=== PATIENT | female | born 1940 | race Caucasian/White ===

== ENCOUNTER 2016-11-26 15:20 | Outpatient (CLI) | payer MEDICARE, OTHER ==
--- NOTE | 2016-11-27 10:11 | XRAY Report ---
RIGHT HIP AND PELVIS: 11/26/2016 CLINICAL INDICATION: Pain. FINDINGS: Frontal view of the hips and pelvis and frogleg lateral view of the right hip demonstrate moderate bilateral hip osteoarthritis. There is no evidence of acute fracture or dislocation. The v isualized bowel gas pattern is normal. IMPRESSION: MODERATE OSTEOARTHRITIS. JOB #: [id number] EXT JOB #:[id number]
== END 2016-11-26 15:21 | disposition home or self-care (01) ==
LOC: DI 15:20
PROVIDERS: ATTEND Internal Medicine
DX: M16.11 Unilateral primary osteoarthritis, right hip (principal)

== ENCOUNTER 2017-04-20 14:56 | Outpatient (CLI) | payer MEDICARE, OTHER ==
[2017-04-20 13:03] LABS: BASOPHILS % (AUTO) 0.4 %; EOSINOPHILS # (AUTO) 0.1 10^3/uL (0.0-0.7); EOSINOPHILS % (AUTO) 1.1 %; HCT - HEMATOCRIT 39.1 % (37.0-47.0); HGB - HEMOGLOBIN 12.6 g/dL (12.0-16.0); LYMPHOCYTES # (AUTO) 1.8 10^3/uL (1.5-3.5); LYMPHOCYTES % (AUTO) 30.9 %; MEAN CORPUSCULAR HEMOGLOBIN 23.5 pg (27.0-31.0); MEAN CORPUSCULAR HGB CONC 32.2 g/dL (32.0-36.0); MEAN PLATELET VOLUME 9.4 fL (7.9-10.8); MONOCYTES # (AUTO) 0.6 10^3/uL (0.0-1.0); NEUTROPHILS # (AUTO) 3.4 10^3/uL (1.5-6.6); NEUTROPHILS % (AUTO) 57.6 %; RED BLOOD COUNT 5.35 10^6/uL (4.20-5.40); RED CELL DISTRIBUTION WIDTH 14.1 % (12.0-15.0); UNCORRECTED WHITE BLOOD COUNT 5.9 x10^3/uL; WHITE BLOOD COUNT 5.9 x10^3/uL (4.8-10.8)
[2017-04-20 13:38] LABS: ALBUMIN/GLOBULIN RATIO 1.3 (1.0-2.2); BILIRUBIN,TOTAL 0.7 mg/dL (0.2-1.0); BUN - BLOOD UREA NITROGEN 16 mg/dL (6-20); CALCIUM 9.1 mg/dL (8.5-10.3); CARBON DIOXIDE - CO2 28 mmol/L (21-32); CHLORIDE 98 mmol/L (101-111); CHOL/HDL RATIO 2.6 (<4.4); CHOLESTEROL 143 mg/dL; CREATININE 0.7 mg/dL (0.4-1.0); GFR - MDRD 81 (>89); GLUCOSE 88 mg/dL (70-100); HDL CHOLESTEROL 56 mg/dL; LDL/HDL RATIO 1.3 (<4.4); POTASSIUM 3.9 mmol/L (3.5-5.0); SODIUM 132 mmol/L (135-145); TOTAL PROTEIN 7.2 g/dL (6.7-8.2); TRIGLYCERIDES 69 mg/dL; VLDL CHOLESTEROL 14 mg/dL
== END 2017-04-20 14:57 | disposition home or self-care (01) ==
LOC: LAB.N 14:56
PROVIDERS: ATTEND Internal Medicine
DX: K51.90 Ulcerative colitis, unspecified, without complications (principal); E78.5 Hyperlipidemia, unspecified; I10 Essential (primary) hypertension; Z79.899 Other long term (current) drug therapy
CPT/HCPCS: 36415; 80053; 80061; 85025

== ENCOUNTER 2017-05-10 08:11 | Outpatient (CLI) | payer MEDICARE, OTHER ==
--- NOTE | 2017-05-11 19:14 | Mammography Report ---
DIGITAL SCREENING MAMMOGRAM: 05/10/2017 CLINICAL INDICATION: A 77-year-old nulliparous patient for screening. COMPARISON: 04/2016, 04/2015, 04/2014, 03/2013, 03/2012, 03/2011, 03/2010. TECHNIQUE: Routine CC and MLO projections were obtained of the breasts. The breasts demonstrate scattered fibroglandular densities bilaterally. Punctate, typically benign c alcifications are present. No suspicious masses, clustered microcalcifications, or regions of richy ectural distortion are identified. IMPRESSION: BENIGN FINDINGS. RECOMMENDATION: ROUTINE ANNUAL SCREENING UNLESS OTHERWISE CLINICALLY INDICATED. BIRADS CATEGORY: 2, BENIGN FINDINGS. STANDARD QUALIFYING STATEMENTS 1. This examination was reviewed with the aid of Computed-Aided Detection (CAD). 2. A negative or benign imaging report should not delay biopsy if clinically suspicious findings are present. Consider surgical consultation if warranted. More than 5% of cancers are not identified b y imaging. 3. Dense breasts may obscure an underlying neoplasm. :9 JOB #: [id number] EXT JOB #:[id number]
== END 2017-05-10 08:12 | disposition home or self-care (01) ==
LOC: DI 08:11
PROVIDERS: ATTEND Internal Medicine
DX: Z12.31 Encounter for screening mammogram for malignant neoplasm of breast (principal)
CPT/HCPCS: 77067

== ENCOUNTER 2018-04-21 08:04 | Outpatient (CLI) | payer MEDICARE, OTHER ==
[2018-04-21 12:59] LABS: BASOPHILS % (AUTO) 0.4 %; EOSINOPHILS # (AUTO) 0.1 10^3/uL (0.0-0.7); EOSINOPHILS % (AUTO) 1.2 %; LYMPHOCYTES # (AUTO) 1.4 10^3/uL (1.5-3.5); LYMPHOCYTES % (AUTO) 28.6 %; MEAN CORPUSCULAR HEMOGLOBIN 24.6 pg (27.0-31.0); MEAN CORPUSCULAR HGB CONC 33.6 g/dL (32.0-36.0); MEAN CORPUSCULAR VOLUME 73.4 fL (81.0-99.0); MEAN PLATELET VOLUME 9.2 fL (7.9-10.8); MONOCYTES # (AUTO) 0.4 10^3/uL (0.0-1.0); MONOCYTES % (AUTO) 7.7 %; NEUTROPHILS # (AUTO) 3.1 10^3/uL (1.5-6.6); NEUTROPHILS % (AUTO) 62.1 %; PLT - PLATELET COUNT 178 10^3/uL (130-450); RED BLOOD COUNT 5.29 10^6/uL (4.20-5.40); RED CELL DISTRIBUTION WIDTH 14.2 % (12.0-15.0)
[2018-04-21 13:04] LABS: ALBUMIN/GLOBULIN RATIO 1.3 (1.0-2.2); ALKALINE PHOSPHATASE 75 IU/L (42-121); ALT ALANINE AMINOTRANSFERASE 21 IU/L (10-60); AST ASPARTATE AMINOTRANSFERASE 25 IU/L (10-42); BILIRUBIN,TOTAL 0.4 mg/dL (0.2-1.0); BUN - BLOOD UREA NITROGEN 16 mg/dL (6-20); CALCIUM 9.4 mg/dL (8.5-10.3); CARBON DIOXIDE - CO2 29 mmol/L (21-32); CHLORIDE 96 mmol/L (101-111); CHOL/HDL RATIO 2.4 (<4.4); CHOLESTEROL 149 mg/dL; CREATININE 0.7 mg/dL (0.4-1.0); GFR - MDRD 81 (>89); GLUCOSE 96 mg/dL (70-100); HDL CHOLESTEROL 63 mg/dL; LDL CHOLESTEROL,CALCULATED 71 mg/dL; LDL/HDL RATIO 1.1 (<4.4); SODIUM 133 mmol/L (135-145); TOTAL PROTEIN 7.2 g/dL (6.7-8.2); VLDL CHOLESTEROL 15 mg/dL
== END 2018-04-21 08:05 | disposition home or self-care (01) ==
LOC: LAB.N 08:04
PROVIDERS: ATTEND Internal Medicine
DX: K51.90 Ulcerative colitis, unspecified, without complications (principal); E78.5 Hyperlipidemia, unspecified; K21.9 Gastro-esophageal reflux disease without esophagitis; I10 Essential (primary) hypertension
CPT/HCPCS: 36415; 80053; 80061; 83721; 84443; 85025

== ENCOUNTER 2018-05-03 07:48 | Outpatient (CLI) | payer MEDICARE, OTHER | END 2018-05-03 07:49 | disposition home or self-care (01) | LOC: LAB.N 07:48 | PROVIDERS: ATTEND Internal Medicine | DX: R71.8 Other abnormality of red blood cells (principal) | CPT/HCPCS: 36415; 82728 ==

== ENCOUNTER 2018-05-18 09:39 | Outpatient (CLI) | payer MEDICARE, OTHER ==
--- NOTE | 2018-05-19 15:57 | Mammography Report ---
Reason: SCREENING MAMMO Procedure Date: 05/18/2018 Accession Number: [id number] / [id number] Procedure: FLORI - Screening Mammo w/Kingsley CPT Code: FULL RESULT: EXAM: Screening Mammo w/Kingsley DATE: 05/18/2018 10:04 AM CLINICAL HISTORY: 78 year-old nulliparous female for screening. TECHNIQUE: Bilateral CC and MLO views were obtained. COMPARISON: 05/10/2017, 05/08/2016, 05/06/2015, 04/27/2014. FINDINGS: The breasts demonstrate scattered fibroglandular densities bilaterally. No suspicious masses, clustered microcalcifications, or regions of architectural distortion are identified. IMPRESSION: Negative examination RECOMMENDATION: Routine annual screening unless otherwise clinically indicated. BIRADS CATEGORY 1: Negative STANDARD QUALIFYING STATEMENTS: 1. This examination was not reviewed with the aid of Computer-Aided Detection (CAD). 2. A negative or benign imaging report should not delay biopsy if clinically suspicious findings are present. Consider surgical consultation if warranted. More than 5% of cancers are not identified by imaging. 3. Dense breasts may obscure an underlying neoplasm. 4. This examination was reviewed with the aid of 3D breast imaging (tomosynthesis).
== END 2018-05-18 09:40 | disposition home or self-care (01) ==
LOC: DI 09:39
PROVIDERS: ATTEND Internal Medicine
DX: Z12.31 Encounter for screening mammogram for malignant neoplasm of breast (principal)
CPT/HCPCS: 77063; 77067

== ENCOUNTER 2018-10-04 08:53 | Outpatient (CLI) | payer MEDICARE, OTHER ==
[2018-10-04 09:41] LABS: ABSOLUTE RETICS # AUTO 0.043 10^6/uL (0.020-0.110); BASOPHILS # (AUTO) 0.1 10^3/uL (0.0-0.1); BASOPHILS % (AUTO) 0.8 %; EOSINOPHILS % (AUTO) 0.6 %; HGB - HEMOGLOBIN 12.9 g/dL (12.0-16.0); LYMPHOCYTES # (AUTO) 1.1 10^3/uL (1.5-3.5); LYMPHOCYTES % (AUTO) 16.5 %; MEAN CORPUSCULAR HGB CONC 32.8 g/dL (32.0-36.0); MEAN CORPUSCULAR VOLUME 73.3 fL (81.0-99.0); MEAN PLATELET VOLUME 8.9 fL (7.9-10.8); MEAN RETIC VALUE 97.7; MONOCYTES # (AUTO) 0.6 10^3/uL (0.0-1.0); MONOCYTES % (AUTO) 9.3 %; NEUTROPHILS % (AUTO) 72.8 %; PLT - PLATELET COUNT 183 10^3/uL (130-450); RED BLOOD COUNT 5.35 10^6/uL (4.20-5.40); WHITE BLOOD COUNT 6.8 x10^3/uL (4.8-10.8)
[2018-10-04 10:13] LABS: % IRON SATURATION 16 % (20-50); IRON 59 ug/dL (28-170); TOTAL IRON BINDING CAPACITY 364 ug/dL (250-450); TRANSFERRIN 260 mg/dL (192-382)
[2018-10-04 10:24] LABS: FERRITIN 80.1 ng/mL (11.0-306.8)
[2018-10-04 10:28] LABS: FOLATE 11.57 ng/mL (5.90 - >24.8)
== END 2018-10-04 08:54 | disposition home or self-care (01) ==
LOC: LAB 08:53
PROVIDERS: ATTEND Family Medicine
DX: R68.89 Other general symptoms and signs (principal); R71.8 Other abnormality of red blood cells; M19.90 Unspecified osteoarthritis, unspecified site
CPT/HCPCS: 36415; 82607; 82728; 82746; 83540; 84466; 85025; 85044

== ENCOUNTER 2018-11-29 11:46 | Emergency (ER) | payer MEDICARE, OTHER ==
[2018-11-29 11:52] VITALS: BP 143/85
--- NOTE | 2018-11-29 12:01 | ED Physician Documentation ---
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.) Where injury occurred: Home Timing - onset: How many hours ago (1-2 hours ago and it continues to bleed on ROM and the edges open some.) Timing - details: Abrupt onset Worsened by: Moving Associated symptoms: No: Weakness, Numbness Contributing factors: No: Anticoagulated Similar symptoms before: Has not had sx before Review of Systems Neurologic: denies: Focal weakness, Numbness PD PAST MEDICAL HISTORY - Past Medical History Cardiovascular: High cholesterol Endocrine/Autoimmune: None GI: Ulcerative colitis : None HEENT: Chronic hearing loss Psych: None Musculoskeletal: None Derm: None - Past Surgical History 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 HEENT: Cataracts - Present Medications Home Medications: Ambulatory Orders Medication Instructions Recorded Confirmed Acetaminophen/Cod 300/30 [Tylenol 1 mg ORAL DAILY 04/27/14 12/17/14 #3] Aspirin 81 mg ORAL DAILY 04/27/14 12/17/14 Enalapril [Vasotec] 20 mg PO DAILY 04/27/14 12/17/14 Potassium Chloride [K-Dur] 20 meq ORAL DAILY 04/27/14 12/17/14 Verapamil HCl [Verapamil ER] 240 mg ORAL DAILY 04/27/14 12/17/14 hydroCHLOROthiazide 25 mg ORAL DAILY 04/27/14 12/17/14 [Hydrochlorothiazide] Atorvastatin [Lipitor] 40 mg ORAL DAILY 04/30/14 12/17/14 - Allergies Allergies/Adverse Reactions: Allergies Allergy/AdvReac Type Severity Reaction Status Date / Time cyclobenzaprine HCl * Allergy Anxiety Verified 11/29/18 11:52 [From Flexeril] Zelfadine Allergy Nausea Uncoded 11/29/18 12:06 - Social History Smoking Status: Former smoker PD ED PE NORMAL - Vitals Vital signs reviewed: Yes - General General: Alert and oriented X 3, No acute distress, Well developed/nourished - Derm Derm: Normal color, Warm and dry - Extremities Extremities: Other (ledft index finger with laceration at radial/dorsal aspect of the DIP joint, without FB, but does have slight oozing bleeding. Normal sesnation and cap refill to tip. ) Results - Vitals Vitals: Vital Signs - 24 hr 11/29/18 11:49 Temperature 36.5 C Heart Rate 71 Respiratory 14 Rate Blood Pressure 143/85 H O2 Saturation 96 Oxygen O2 Source Room air Procedures - Laceration (location) left index finger Length in cm: 1.5 Wound type: Curved, Into subcut fat, Clean. No: Into muscle Neurovascular status: Sensory intact, Motor intact, Vascular intact Tendon involvement: No: Tendon intact Anesthesia: Lidocaine 1% Wound Preparation: Irrigated copiously NS Skin layer closure: Nylon, Interrupted, Size #-0 - enter number (4), Sutures - enter # (3) Other: Patient tolerated well, No complications, Neurovascular intact, Dressing applied, Tetanus booster given PD MEDICAL DECISION MAKING - ED course Complexity details: considered differential (wound is small but opens with flexion and is still bleeding some. Shared decision for sutures. ), d/w patient Departure - Departure Disposition: Home, Self Care Clinical Impression: Laceration of index finger Qualifiers: Encounter type: initial encounter Damage to nail status: without damage Foreign body presence: without foreign body Laterality: left Qualified Code(s): S61.211A - Laceration without foreign body of left index finger without damage to nail, initial encounter Condition: Stable Record reviewed to determine appropriate education?: Yes Instructions: ED Laceration Hand Follow-Up: Leighton Youssef MD [Primary Care Provider] - Comments: It is okay to wash and shower. Clean off the wound twice a day with soap and water, or peroxide and water. Apply some antibiotic ointment to it to keep it moist. Also to watch for signs of infection such as purulence, redness or increasing pain. Return to your primary care or the ER at the specified time for suture removal. Suture removal 7 8 days. Discharge Date/Time: 11/29/18 12:35
[2018-11-29] MEDS ORDERED: TETANUS/DIPHTHERIA/PERTUSSIS 0.5 ML SYRINGE IM ONE (12:13)
== END 2018-11-29 12:35 | disposition home or self-care (01) ==
LOC: ED 11:46
DX: S61.211A Laceration without foreign body of left index finger without damage to nail, initial encounter (principal); W26.8XXA Contact with other sharp object(s), not elsewhere classified, initial encounter; Y93.89 Activity, other specified; Y92.009 Unspecified place in unspecified non-institutional (private) residence as the place of occurrence of the external cause; Z23 Encounter for immunization; Z79.82 Long term (current) use of aspirin; Z87.891 Personal history of nicotine dependence
CPT/HCPCS: 12001; 90471; 99282

== ENCOUNTER 2019-04-24 08:02 | Outpatient (CLI) | payer MEDICARE, OTHER ==
[2019-04-24 12:00] LABS: BASOPHILS % (AUTO) 0.7 %; EOSINOPHILS # (AUTO) 0.1 10^3/uL (0.0-0.7); EOSINOPHILS % (AUTO) 1.1 %; HGB - HEMOGLOBIN 12.4 g/dL (12.0-16.0); LYMPHOCYTES # (AUTO) 1.1 10^3/uL (1.5-3.5); LYMPHOCYTES % (AUTO) 24.9 %; MEAN CORPUSCULAR HEMOGLOBIN 24.3 pg (27.0-31.0); MEAN CORPUSCULAR HGB CONC 31.6 g/dL (32.0-36.0); MEAN CORPUSCULAR VOLUME 76.9 fL (81.0-99.0); MEAN PLATELET VOLUME 11.8 fL (7.9-10.8); MONOCYTES # (AUTO) 0.4 10^3/uL (0.0-1.0); MONOCYTES % (AUTO) 9.4 %; NEUTROPHILS # (AUTO) 2.9 10^3/uL (1.5-6.6); NEUTROPHILS % (AUTO) 63.7 %; PLT - PLATELET COUNT 222 10^3/uL (130-450); RED BLOOD COUNT 5.11 10^6/uL (4.20-5.40); RED CELL DISTRIBUTION WIDTH 14.1 % (12.0-15.0); WHITE BLOOD COUNT 4.6 x10^3/uL (4.8-10.8)
[2019-04-24 12:28] LABS: ALBUMIN 4.1 g/dL (3.2-5.5); ALBUMIN/GLOBULIN RATIO 1.3 (1.0-2.2); ALKALINE PHOSPHATASE 75 IU/L (42-121); ALT ALANINE AMINOTRANSFERASE 22 IU/L (10-60); AST ASPARTATE AMINOTRANSFERASE 24 IU/L (10-42); BUN - BLOOD UREA NITROGEN 22 mg/dL (6-20); CALCIUM 9.3 mg/dL (8.5-10.3); CARBON DIOXIDE - CO2 30 mmol/L (21-32); CHLORIDE 97 mmol/L (101-111); CHOL/HDL RATIO 2.4 (<4.4); CHOLESTEROL 127 mg/dL; CREATININE 0.8 mg/dL (0.4-1.0); GFR - MDRD 69 (>89); GLUCOSE 102 mg/dL (70-100); HDL CHOLESTEROL 54 mg/dL; LDL CHOLESTEROL,CALCULATED 61 mg/dL; LDL/HDL RATIO 1.1 (<4.4); SODIUM 135 mmol/L (135-145); TOTAL PROTEIN 7.3 g/dL (6.7-8.2); VLDL CHOLESTEROL 12 mg/dL
[2019-04-24 13:26] LABS: HB2 TOTAL 12.8 g/dL; HEMOGLOBIN A1C 0.52 g/dL; HEMOGLOBIN A1C % 5.9 % (4.6-6.2)
== END 2019-04-24 23:59 | disposition home or self-care (01) ==
LOC: LAB.N 08:02
PROVIDERS: ATTEND Family Medicine
DX: K51.90 Ulcerative colitis, unspecified, without complications (principal); M45.9 Ankylosing spondylitis of unspecified sites in spine; K21.9 Gastro-esophageal reflux disease without esophagitis; M19.90 Unspecified osteoarthritis, unspecified site; E78.5 Hyperlipidemia, unspecified; I10 Essential (primary) hypertension
CPT/HCPCS: 36415; 80053; 80061; 83036; 83721; 84443; 85025

== ENCOUNTER 2019-06-23 12:30 | Outpatient (CLI) | payer MEDICARE, OTHER ==
--- NOTE | 2019-06-26 12:00 | Mammography Report ---
Reason: ROUTINE SCREENING Procedure Date: 06/23/2019 Accession Number: [id number] / [id number] Procedure: FLORI - Screening Mammo Dig Bilat CPT Code: Final Report FULL RESULT: EXAM: Screening Mammo Dig Bilat DATE: 06/23/2019 1:12 PM CLINICAL HISTORY: Nulliparous patient for routine screening TECHNIQUE: (B) - Bilateral CC and MLO views were obtained. COMPARISON: 05/18/2018, 05/10/2017, 05/08/2016, 05/06/2015, 04/27/2014, 04/07/2013, 04/08/2012, 04/01/2011 and 04/08/2010 PARENCHYMAL PATTERN: (A) - The breasts demonstrate scattered fibroglandular densities bilaterally. FINDINGS: No significant interval change. There are no suspicious masses, calcifications, or areas of distortion. IMPRESSION: Negative examination. BI-RADS category 1. RECOMMENDATION: (ANNUAL) - Recommend routine annual screening mammography. BI-RADS CATEGORY: (1) - Negative. STANDARD QUALIFYING STATEMENTS: 1. This examination was not reviewed with the aid of Computer-Aided Detection (CAD). 2. A negative or benign imaging report should not preclude biopsy if clinically suspicious findings are present. 3. Dense breasts may obscure an underlying neoplasm. 4. This examination was reviewed without the aid of 3D breast imaging (tomosynthesis).
== END 2019-06-23 12:31 | disposition home or self-care (01) ==
LOC: DI 12:30
DX: Z12.31 Encounter for screening mammogram for malignant neoplasm of breast (principal)
CPT/HCPCS: 77067

== ENCOUNTER 2020-05-09 08:00 | Outpatient (CLI) | payer MEDICARE, OTHER ==
[2020-05-09 12:06] LABS: BASOPHILS % (AUTO) 0.7 %; EOSINOPHILS # (AUTO) 0.2 10^3/uL (0.0-0.7); EOSINOPHILS % (AUTO) 3.1 %; HGB - HEMOGLOBIN 12.7 g/dL (12.0-16.0); LYMPHOCYTES # (AUTO) 1.8 10^3/uL (1.5-3.5); LYMPHOCYTES % (AUTO) 32.2 %; MEAN CORPUSCULAR HEMOGLOBIN 24.5 pg (27.0-31.0); MEAN CORPUSCULAR HGB CONC 31.9 g/dL (32.0-36.0); MEAN CORPUSCULAR VOLUME 76.8 fL (81.0-99.0); MONOCYTES # (AUTO) 0.5 10^3/uL (0.0-1.0); MONOCYTES % (AUTO) 8.7 %; NEUTROPHILS % (AUTO) 55.1 %; PLT - PLATELET COUNT 210 10^3/uL (130-450); RED BLOOD COUNT 5.18 10^6/uL (4.20-5.40); RED CELL DISTRIBUTION WIDTH 14.5 % (12.0-15.0); WHITE BLOOD COUNT 5.4 x10^3/uL (4.8-10.8)
[2020-05-09 14:02] LABS: ALBUMIN 4.1 g/dL (3.2-5.5); ALBUMIN/GLOBULIN RATIO 1.4 (1.0-2.2); ALKALINE PHOSPHATASE 83 IU/L (42-121); ALT ALANINE AMINOTRANSFERASE 21 IU/L (10-60); AST ASPARTATE AMINOTRANSFERASE 23 IU/L (10-42); BILIRUBIN,TOTAL 0.8 mg/dL (0.2-1.0); BUN - BLOOD UREA NITROGEN 27 mg/dL (6-20); CALCIUM 9.3 mg/dL (8.5-10.3); CARBON DIOXIDE - CO2 27 mmol/L (21-32); CHLORIDE 98 mmol/L (101-111); CHOL/HDL RATIO 2.3 (<4.4); CHOLESTEROL 133 mg/dL; CREATININE 0.8 mg/dL (0.4-1.0); GLUCOSE 92 mg/dL (70-100); HDL CHOLESTEROL 59 mg/dL; LDL CHOLESTEROL,CALCULATED 64 mg/dL; LDL/HDL RATIO 1.1 (<4.4); SODIUM 135 mmol/L (135-145); VLDL CHOLESTEROL 10 mg/dL
[2020-05-09 14:14] LABS: CRP - C-REACTIVE PROTEIN < 1.0 mg/dL (0-1.0)
== END 2020-05-09 08:01 | disposition home or self-care (01) ==
LOC: LAB.WCP 08:00
PROVIDERS: ATTEND Family Medicine
DX: M45.9 Ankylosing spondylitis of unspecified sites in spine (principal); E78.5 Hyperlipidemia, unspecified; M54.9 Dorsalgia, unspecified; K21.9 Gastro-esophageal reflux disease without esophagitis; I10 Essential (primary) hypertension
CPT/HCPCS: 36415; 80053; 80061; 83721; 84443; 85025; 85651; 86140

== ENCOUNTER 2020-05-18 23:50 | Outpatient (CLI) | payer MEDICARE, OTHER | END 2020-05-18 23:51 | disposition critical access hospital (66) | LOC: EMS 23:50 | PROVIDERS: ATTEND Surgery | DX: R10.10 Upper abdominal pain, unspecified (principal); R11.0 Nausea | CPT/HCPCS: A0425; A0427 ==

== ENCOUNTER 2020-05-19 00:15 | Inpatient (IN) | payer MEDICARE, OTHER ==
[2020-05-19] MEDS ORDERED: iohexoL-240 10 ML VIAL IVP ONE (00:35)
[2020-05-19] MEDS ORDERED: MORPHINE 2 MG/ML CARPUJECT IVP STA ×2 (00:38→05:25)
[2020-05-19] MEDS ORDERED: ONDANSETRON 4 MG/2 ML VIAL IVP STA ×3 (00:38→05:25)
[2020-05-19] MEDS ORDERED: FAMOTIDINE 20 MG/2 ML SYRINGE IVP STA (00:38)
[2020-05-19] MEDS ORDERED: IOVERSOL 320 100 ML VIAL IVP ONE ×2 (00:49→04:39)
[2020-05-19] MEDS ORDERED: IOVERSOL 320 50 ML VIAL ONE (00:49)
[2020-05-19 01:02] LABS: BASOPHILS % (AUTO) 0.3 %; LYMPHOCYTES # (AUTO) 0.5 10^3/uL (1.5-3.5); LYMPHOCYTES % (AUTO) 3.4 %; MEAN CORPUSCULAR HEMOGLOBIN 24.8 pg (27.0-31.0); MEAN CORPUSCULAR VOLUME 75.2 fL (81.0-99.0); MEAN PLATELET VOLUME 11.3 fL (7.9-10.8); MONOCYTES # (AUTO) 0.3 10^3/uL (0.0-1.0); NEUTROPHILS # (AUTO) 13.3 10^3/uL (1.5-6.6); NEUTROPHILS % (AUTO) 93.9 %; PLT - PLATELET COUNT 230 10^3/uL (130-450); RED BLOOD COUNT 5.64 10^6/uL (4.20-5.40); WHITE BLOOD COUNT 14.1 x10^3/uL (4.8-10.8)
[2020-05-19 01:14] LABS: ALBUMIN 4.5 g/dL (3.2-5.5); ALBUMIN/GLOBULIN RATIO 1.4 (1.0-2.2); BILIRUBIN,TOTAL 1.1 mg/dL (0.2-1.0); CALCIUM 9.6 mg/dL (8.5-10.3); CREATININE 0.7 mg/dL (0.4-1.0); TOTAL PROTEIN 7.8 g/dL (6.7-8.2)
--- NOTE | 2020-05-19 03:23 | ED Physician Documentation ---
PD HPI ABD PAIN - Stated complaint Stated Complaint: ABD PX - Chief complaint Chief Complaint: Abd Pain - History obtained from History obtained from: Patient - Additional information Additional information: 80-year-old woman with past medical history of high blood pressure hyperlipidemia, ulcerative colitis status post colectomy with ostomy remotely, status post hernia repair in 2012 presents with sudden onset severe bilateral upper quadrant abdominal pain since 6:30 PM, constant, waxing and waning, spasmodic in quality, associated with nausea. Pain started while watching television, and has been in proved with 100 mcg of fentanyl given by EMS on route. Patient denies fever chills vomiting diarrhea back pain chest pain shortness of breath or diaphoresis. Review of Systems Ten Systems: 10 systems reviewed and negative Constitutional: denies: Fever, Chills Cardiac: denies: Chest pain / pressure Respiratory: denies: Dyspnea, Cough GI: reports: Abdominal Pain, Nausea. 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 HEENT: Cataracts - Present Medications Home Medications: Ambulatory Orders Medication Instructions Recorded Confirmed Acetaminophen/Cod 300/30 [Tylenol 1 mg ORAL DAILY 04/27/14 12/17/14 #3] Aspirin 81 mg ORAL DAILY 04/27/14 12/17/14 Enalapril [Vasotec] 20 mg PO DAILY 04/27/14 12/17/14 Potassium Chloride [K-Dur] 20 meq ORAL DAILY 04/27/14 12/17/14 Verapamil HCl [Verapamil ER] 240 mg ORAL DAILY 04/27/14 12/17/14 hydroCHLOROthiazide 25 mg ORAL DAILY 04/27/14 12/17/14 [Hydrochlorothiazide] Atorvastatin [Lipitor] 40 mg ORAL DAILY 04/30/14 12/17/14 - Allergies Allergies/Adverse Reactions: Allergies Allergy/AdvReac Type Severity Reaction Status Date / Time cyclobenzaprine HCl * Allergy Anxiety Verified 05/19/20 00:31 [From Flexeril] Zelfadine Allergy Nausea Uncoded 05/19/20 00:31 - Social History Does the pt smoke?: No Smoking Status: Never smoker Does the pt drink ETOH?: No Does the pt have substance abuse?: No - Immunizations Immunizations are current?: Yes Immunizations: TDAP current <10years - POLST Patient has POLST: No PD ED PE NORMAL - Vitals Vital signs reviewed: Yes - General General: Alert and oriented X 3 - HEENT HEENT: Atraumatic, PERRL, EOMI - Neck Neck: No bony TTP, No JVD - Cardiac Cardiac: RRR (Borderline tachycardic) - Respiratory Respiratory: No respiratory distress, Clear bilaterally - Abdomen Abdomen: Normal bowel sounds, Other (Tender to palpation in bilateral upper quadrants. Ostomy in place.) - Female Female : Deferred - Rectal Rectal: Deferred - Back Back: No CVA TTP - Derm Derm: Normal color, Warm and dry - Extremities Extremities: No deformity, No edema - Neuro Neuro: Alert and oriented X 3 - Psych Psych: Normal mood, Normal affect Results - Vitals Vitals: Vital Signs - 24 hr 05/19/20 05/19/20 05/19/20 00:20 01:12 02:20 Temperature 36.8 C Heart Rate 110 H 99 101 H Respiratory 20 16 18 Rate Blood Pressure 174/63 H 153/68 H 134/64 H O2 Saturation 98 99 99 05/19/20 05/19/20 05/19/20 03:17 04:12 05:55 Temperature 36.2 C L 36.5 C 37.0 C Heart Rate 100 102 H 102 H Respiratory 18 18 18 Rate Blood Pressure 151/74 H 157/69 H 165/78 H O2 Saturation 97 100 96 Oxygen O2 Source Room air - EKG (time done) 0118 Rate: Rate (enter#) (99) Rhythm: Sinus tachycardia Ischemia: Normal ST segments Computer interpretation: Disagree with computer 0523 Rate: Rate (enter#) (105) Compare to prior EKG: Unchanged from prior EKG (unchanged from a few hours ago.) - Labs Labs: Laboratory Tests 05/19/20 05/19/20 05/19/20 00:50 00:50 04:25 WBC 14.1 H RBC 5.64 H Hgb 14.0 Hct 42.4 MCV 75.2 L MCH 24.8 L MCHC 33.0 RDW 14.0 Plt Count 230 MPV 11.3 H Neut # (Auto) 13.3 H Lymph # (Auto) 0.5 L [place] # (Auto) 0.3 Eos # (Auto) 0.0 Baso # (Auto) 0.0 Absolute Nucleated RBC 0.00 Nucleated RBC % 0.0 Sodium 131 L Potassium 3.6 Chloride 93 L Carbon Dioxide 25 Anion Gap 13.0 BUN 23 H Creatinine 0.7 Estimated GFR (MDRD) 80 L Glucose 193 H Calcium 9.6 Total Bilirubin 1.1 H AST 22 ALT 23 Alkaline Phosphatase 98 Total Protein 7.8 Albumin 4.5 Globulin 3.3 Albumin/Globulin Ratio 1.4 Lipase 25 Urine Color YELLOW Urine Clarity CLEAR Urine pH 6.0 Ur Specific [place] 1.020 Urine Protein 30 H Urine Glucose (UA) NEGATIVE Urine Ketones 15 H Urine Occult Blood TRACE-INTA Urine Nitrite NEGATIVE Urine Bilirubin NEGATIVE Urine Urobilinogen 0.2 (NORMAL) Ur Leukocyte Esterase NEGATIVE Urine RBC 0-5 Urine WBC 0-3 Ur Squamous Epith Cells RARE Squamous Urine Bacteria None Seen Ur Microscopic Review INDICATED Urine Culture Comments NOT INDICATED SARS-CoV-2 (PCR) 05/19/20 05:37 WBC RBC Hgb Hct MCV MCH MCHC RDW Plt Count MPV Neut # (Auto) Lymph # (Auto) [place] # (Auto) Eos # (Auto) Baso # (Auto) Absolute Nucleated RBC Nucleated RBC % Sodium Potassium Chloride Carbon Dioxide Anion Gap BUN Creatinine Estimated GFR (MDRD) Glucose Calcium Total Bilirubin AST ALT Alkaline Phosphatase Total Protein Albumin Globulin Albumin/Globulin Ratio Lipase Urine Color Urine Clarity Urine pH Ur Specific [place] Urine Protein Urine Glucose (UA) Urine Ketones Urine Occult Blood Urine Nitrite Urine Bilirubin Urine Urobilinogen Ur Leukocyte Esterase Urine RBC Urine WBC Ur Squamous Epith Cells Urine Bacteria Ur Microscopic Review Urine Culture Comments SARS-CoV-2 (PCR) NOT DETECTED PD MEDICAL DECISION MAKING - ED course Complexity details: reviewed results, d/w patient ED course: 80-year-old woman presents with abdominal pain, found to have small bowel obstruction On CT scan. Discussed with surgery who will evaluate the patient. NG tube placed. Patient aware and agreeable to admission. Also of note patient has cardiomegaly with pericardial effusion on ct. She states that this is old. Bedside echocardiogram without evidence of tamponade physiology. Small pericardial effusion. Repeat EKG without acute changes. Departure - Departure Disposition: 66 [facility] DC/Xfer Clinical Impression: Small bowel obstruction, Nausea, Abdominal pain Condition: Stable
[2020-05-19] MEDS ORDERED: IOVERSOL 320 50 ML VIAL PO ONE (04:37)
[2020-05-19 04:50] LABS: BILIRUBIN,URINE NEGATIVE (NEGATIVE); GLUCOSE, URINE (UA) NEGATIVE (NEGATIVE); KETONES,URINE (UA) 15 mg/dL (NEGATIVE); LEUKOCYTE ESTERASE, URINE NEGATIVE (NEGATIVE); NITRITE,URINE NEGATIVE (NEGATIVE); OCCULT BLOOD,URINE TRACE-INTA (NEGATIVE); PROTEIN,URINE 30 mg/dL (NEGATIVE); UROBILINOGEN,URINE 0.2 (NORMAL) E.U./dL (NORMAL)
[2020-05-19 04:54] LABS: CLARITY,URINE CLEAR (CLEAR)
[2020-05-19 05:04] LABS: BACTERIA,URINE None Seen /HPF (None Seen); RBC,URINE 0-5 /HPF (0-5); SQUAMOUS EPITHELIAL CELL,UR RARE Squamous (<= Few)
[2020-05-19] MEDS ORDERED: LIDOCAINE JELLY 2% 6 ML JEL.PF.APP TOP STA (05:43)
[2020-05-19] MEDS ORDERED: SODIUM CHLORIDE FLUSH 0.9% 10 ML SYRINGE IVP PRN (06:43)
[2020-05-19] MEDS: PANTOPRAZOLE 40 MG VIAL IVP SCH (07:42)
[2020-05-19] MEDS: SODIUM CHLORIDE 0.9% 1,000 ML IV SCH ×2 (07:42→15:11)
--- NOTE | 2020-05-19 08:24 | CT Report ---
PROCEDURE: Abdomen/Pelvis W INDICATIONS: BL UQ pain CONTRAST: IV CONTRAST: Optiray 320 ml: 100 PO CONTRAST: Optiray 320 ml50 TECHNIQUE: After the administration of intravenous contrast, 5 mm thick sections acquired from the diaphragms to the symphysis. 5 mm thick coronal and sagittal reformats were acquired. For radiation dose reducti on, the following was used: automated exposure control, adjustment of mA and/or kV according to jimmy ent size. COMPARISON: 06/27/2012. FINDINGS: Image quality: Excellent. ABDOMEN: Lung bases: Mild dependent atelectasis. Heart size is enlarged. Pericardial effusion. No flattening of the anterior right ventricular wall or flattening of the interventricular septum. Solid organs: Liver and spleen are normal in size and enhancement. Gallbladder is unremarkable. Bi liary system is non dilated. Pancreas enhances normally. No adrenal nodules. Kidneys demonstrate n ormal size and enhancement, without hydronephrosis. Peritoneum and bowel: Status post colectomy with right lower quadrant ostomy. There is a peristomal hernia containing a few loops of nondilated small bowel. The small bowel distal and proximal to the o stomy appears decompressed. There are numerous loops of mild to moderate distended small bowel with a ir-fluid levels seen throughout the abdomen. Transition point appears to be in the central pelvis see n on axial image 53. This is in close proximity to the ostomy. No evidence for abnormal bowel wall th ickening. No free air. Scattered free fluid predominantly in the lower pelvis. Nodes and vessels: No retroperitoneal or mesenteric adenopathy by size criteria. Aorta and inferior vena cava are normal in size. Atherosclerotic calcifications of the abdominal aorta are present. Miscellaneous: No ventral hernias. PELVIS: Genitourinary: Bladder wall thickness is normal. Miscellaneous: No inguinal hernias or adenopathy. Bones: No suspicious bony lesions. No vertebral body compression fractures. IMPRESSION: 1. Findings consistent with developing small bowel obstruction with transition point suspected within the central pelvis. 2. Status post colectomy with right lower quadrant ostomy. There is a small bowel containing parastom al hernia. No evidence for bowel strangulation. 3. Cardiomegaly with pericardial effusion. 4. Scattered ascites predominantly in the pelvis. No significant discrepancy with initial interpretation by overnight radiologist. Reviewed by: Larry Jacob MD on 05/19/2020 7:22 AM [facility] Approved by: Larry Jacob MD on 05/19/2020 7:22 AM [facility] Station ID: [id number]
--- NOTE | 2020-05-19 08:26 | XRAY Report ---
PROCEDURE: Chest for Line Placement INDICATIONS: ng tube TECHNIQUE: One view of the chest was acquired. COMPARISON: None. FINDINGS: Surgical changes and devices: Nasogastric tube is visualized with the distal tip projecting over the distal thoracic esophagus. Lungs and pleura: No pleural effusions or pneumothorax. Lungs are clear. Mediastinum: Mediastinal contours appear normal. Heart size is mildly enlarged. Bones and chest wall: No suspicious bony lesions. Overlying soft tissues appear unremarkable. IMPRESSION: Distal tip of the nasogastric tube projects over the distal thoracic esophagus. Repositioning recomme nded with consideration to advanced at least 14 cm. No significant discrepancy with initial interpretation by overnight radiologist. Reviewed by: Larry Jacob MD on 05/19/2020 7:25 AM [facility] Approved by: Larry Jacob MD on 05/19/2020 7:25 AM [facility] Station ID: [id number]
--- NOTE | 2020-05-19 08:28 | XRAY Report ---
PROCEDURE: Chest for Line Placement INDICATIONS: for ng placement TECHNIQUE: One view of the chest was acquired. COMPARISON: Earlier same day FINDINGS: Surgical changes and devices: Nasogastric tube has been advanced with the distal tip projecting in th e left upper abdomen. Distal side-port appears to be beyond the gastroesophageal junction and below t he diaphragm. Lungs and pleura: No pleural effusions or pneumothorax. Minimal left basilar opacities likely repres enting atelectasis. Lungs are otherwise clear without focal consolidation. Mediastinum: Mediastinal contours appear normal. Heart size is mildly enlarged. Bones and chest wall: No suspicious bony lesions. Overlying soft tissues appear unremarkable. IMPRESSION: Repositioning of nasogastric tube with tip and distal side port now projecting below the level of the diaphragm. Reviewed by: Larry Jacob MD on 05/19/2020 7:26 AM [facility] Approved by: Larry Jacob MD on 05/19/2020 7:26 AM [facility] Station ID: [id number]
[2020-05-19] MEDS: SODIUM CHLORIDE FLUSH 0.9% 10 ML SYRINGE IVP SCH ×3 (09:10→23:26)
[2020-05-19] MEDS: ENOXAPARIN 40 MG/0.4 ML SYRINGE SUBQ SCH (09:10)
--- NOTE | 2020-05-19 09:27 | PHARMACY PROGRESS NOTE ---
- Best Possible Medication History Admit Date and Time: 05/19/20 0643 Processed by: Pharmacy Medication History completed: Yes Secondary Source(s): Physician records, Pharmacy records, Insurance records As the person ultimately responsible for medication therapy, providers are able to order a medication from an existing home medication list in [facility] via the "Reconcile Routine" prior to Confirmation of that medication by it desktop support technician. Such practice is discouraged except when the physician, in their clinical judgment, deems that a medical need exists for a medication without regard to previous use.
--- NOTE | 2020-05-19 10:39 | CONSULTATION NOTE ---
Referring Provider Name of Referring Provider:: BrandooliviaCatherine palmer Consult Date: 05/19/20 Chief Complaint - Chief Complaint Chief Complaint: Abdominal pain History of Present Illness - Admitted From Admitted From:: ED - History Obtained From Records Reviewed: Providers Notes History obtained from: Patient and providers Exam Limitations: None - History of Present Illness HPI Comment/Other: 80-year-old woman with past medical history of high blood pressure hyper lipidemia, ulcerative colitis status post colectomy with ostomy remotely, status post hernia repair in 2011 presents with sudden onset severe bilateral upper quadrant abdominal pain since 6:30 PM, constant, waxing and waning, spasmodic in quality, associated with nausea. Pain started while watching television. She reports dry heaves but no vomiting. She has had the right lower quadrant ostomy since the mid 1960s. The peristomal hernia was repair once in the past but failed with externalizaton of the mesh and eventual removal. She lives alone and has no animals. She very much wants to go home as she is scheduled to have a furnace delivered later this week. History - Past Medical History Cardiovascular: reports: High cholesterol Respiratory: reports: None Neuro: reports: None, TIA Endocrine/Autoimmune: reports: None GI: reports: Ulcerative colitis MEDICAL ART THERAPIST: reports: None : reports: None HEENT: reports: Chronic hearing loss Psych: reports: None Musculoskeletal: reports: None, Osteoarthritis Derm: reports: None MRSA Hx?: No Other Past Medical History: Reports 2 previous suicide attempts years ago. - Past Surgical History General: reports: Bowel surgery /MEDICAL ART THERAPIST: reports: Other HEENT: reports: Cataracts - POLST Patient has POLST: No Meds/Allgy - Home Medications Home Medications: Ambulatory Orders Medication Instructions Recorded Confirmed Acetaminophen/Cod 300/30 [Tylenol 1 tab PO TID PRN 04/27/14 05/19/20 #3] Aspirin 81 mg ORAL DAILY 04/27/14 05/19/20 Potassium Chloride [K-Dur] 20 meq PO DAILY 04/27/14 05/19/20 hydroCHLOROthiazide 25 mg PO DAILY 04/27/14 05/19/20 [Hydrochlorothiazide] Atorvastatin Calcium 40 mg PO QPM 05/19/20 05/19/20 Enalapril Maleate [Vasotec] 20 mg PO DAILY 05/19/20 05/19/20 Verapamil HCl [Calan Sr] 240 mg PO DAILY 05/19/20 05/19/20 - Allergies Allergies/Adverse Reactions: Allergies Allergy/AdvReac Type Severity Reaction Status Date / Time cyclobenzaprine HCl * Allergy Anxiety Verified 05/19/20 00:31 [From Flexeril] Zelfadine Allergy Nausea Uncoded 05/19/20 00:31 Review of Systems - Constitutional Constitutional: reports: Poor appetite. denies: Fever, Chills, Weakness - Eyes Eyes: denies: Pain, Blurred vision - Ears, Nose & Throat Ears, Nose & Throat: denies: Hearing loss, Tinnitus, Vertigo - Cardiovascular Cariovascular: denies: Irregular heart rate, Palpitations, Chest pain - Respiratory Respiratory: denies: Cough, Sputum production, Wheezing, Orthopnea - Gastrointestinal Gastrointestinal: reports: Abdominal pain, Constipation, Change in bowel habits, Nausea. denies: Abdominal distention, Diarrhea, Black stools, Bloody stools, Vomiting - Genitourinary Genitourinary: denies: Frequency, Urgency - Musculoskeletal Musculoskeletal: reports: Stiffness - Neurological Neurological: denies: Focal weakness Exam - Vital Signs Reviewed Vital Signs: Yes Vital Signs: Vital Signs x48h Temp Pulse Pulse Resp BP BP Pulse Ox 05/19/20 08:09 37 C 100 16 167/71 H 97 05/19/20 08:00 36.8 C 100 18 155/68 H 98 05/19/20 07:08 36.7 C 97 16 153/67 H 97 05/19/20 05:55 37.0 C 102 H 18 165/78 H 96 05/19/20 04:12 36.5 C 102 H 18 157/69 H 100 05/19/20 03:17 36.2 C L 100 18 151/74 H 97 - Physical Exam General Appearance: positive: No acute distress (No pain currently but it is 7/10 at times), Alert Eyes Bilateral: positive: Normal inspection, PERRL ENT: positive: ENT inspection nml Neck: positive: Nml inspection, Trachea midline Respiratory: positive: No respiratory distress, Breath sounds nml Cardiovascular: positive: Regular rate & rhythm Peripheral Pulses: positive: 0 Abdomen: positive: Non-tender, Other (RLQ is viable but very minimal contents in the bag. Tender to palption in the RLQ and suprapubic region. Healed midline scar.). negative: Nml bowel sounds, No distention, Guarding, Rebound, Mass Back: positive: Nml inspection Skin: positive: Color nml Extremities: positive: Non-tender, Nml appearance Neurologic/Psychiatric: positive: Oriented x3 Conclusion and Plan - Lab Results Laboratory Results 05/19/20 05:37: SARS-CoV-2 (PCR) NOT DETECTED 05/19/20 04:25: Urine Color YELLOW, Urine Clarity CLEAR, Urine pH 6.0, Ur Specific [place] 1.020, Urine Protein 30 H, Urine Glucose (UA) NEGATIVE, Urine Ketones 15 H, Urine Occult Blood TRACE-INTA, Urine Nitrite NEGATIVE, Urine Bilirubin NEGATIVE, Urine Urobilinogen 0.2 (NORMAL), Ur Leukocyte Esterase NEGATIVE, Urine RBC 0-5, Urine WBC 0-3, Ur Squamous Epith Cells RARE Squamous, Urine Bacteria None Seen, Ur Microscopic Review INDICATED, Urine Culture Comments NOT INDICATED 05/19/20 00:50: Sodium 131 L, Potassium 3.6, Chloride 93 L, Carbon Dioxide 25, Anion Gap 13.0, BUN 23 H, Creatinine 0.7, Estimated GFR (MDRD) 80 L, Glucose 193 H, Calcium 9.6, Total Bilirubin 1.1 H, AST 22, ALT 23, Alkaline Phosphatase 98, Total Protein 7.8, Albumin 4.5, Globulin 3.3, Albumin/Globulin Ratio 1.4, Lipase 25 05/19/20 00:50: WBC 14.1 H, RBC 5.64 H, Hgb 14.0, Hct 42.4, MCV 75.2 L, MCH 24.8 L, MCHC 33.0, RDW 14.0, Plt Count 230, MPV 11.3 H, Neut # (Auto) 13.3 H, Lymph # (Auto) 0.5 L, [place] # (Auto) 0.3, Eos # (Auto) 0.0, Baso # (Auto) 0.0, Absolute Nucleated RBC 0.00, Nucleated RBC % 0.0 - Diagnostic Imaging Results Diagnostic Imaging Results Comments: IMPRESSION: 1. Findings consistent with developing small bowel obstruction with transition point suspected within the central pelvis. 2. Status post colectomy with right lower quadrant ostomy. There is a small bowel containing parastomal hernia. No evidence for bowel strangulation. 3. Cardiomegaly with pericardial effusion. 4. Scattered ascites predominantly in the pelvis. No significant discrepancy with initial interpretation by overnight radiologist. Reviewed by: Larry Jacob MD on 05/19/2020 7:22 AM AKST Approved by: Larry Jacob MD on 05/19/2020 7:22 AM AKST - Diagnosis Diagnosis: Early small bowel obstruction - Plan Plan: 1. Leave NGT in place. 2. Watchful waiting for the next 24 hours. 3. If not improvement, will consider laparoscopy or laparotomy
[2020-05-19] MEDS: ONDANSETRON 4 MG/2 ML VIAL IVP PRN ×2 (12:41→20:28)
[2020-05-19] MEDS: HYDROmorphone 0.5 MG/0.5 ML SYRINGE IVP PRN ×2 (12:41→20:28)
--- NOTE | 2020-05-19 15:29 | HISTORY & PHYSICAL EXAMINATION ---
DATE OF SERVICE: 05/19/2020 Physician: Catherine Corral MD HISTORY OF PRESENT ILLNESS: This is an 80-year-old white female with a history of ulcerative colitis, for which she needed a colectomy and ostomy done remotely, she also had mesh implanted and the mesh had somehow moved and came out, and she therefore has hernia around the ostomy with some small bowel in that hernia. She has a history of hypertension and hyperlipidemia. She presents with complaint of sudden onset of severe bilateral upper quadrant abdominal pain that occurred last evening, was waxing and waning, with spasmodic and was associated with nausea. She presented to the Emergency Room with this and improved by getting 100 mcg of fentanyl in the ER, and then antiemetics and NG tube placed in the ER. The ER doctor reached out to the general surgeon, who has already seen her and knows her from her past abdominal surgeries. Dr. Suggs states that she needs bowel rest, NG decompression, wait and see if she has improvement or potentially may need to take her to surgery for findings on abdominal imaging of the bowel obstruction. PAST MEDICAL HISTORY: Ulcerative colitis, ostomy, hernia of the abdominal wall, hyperlipidemia, hearing loss, cataracts. ALLERGIES: CYCLOBENZAPRINE. MEDICATIONS 1. Tylenol with codeine p.r.n. 2. Baby aspirin daily. 3. Lipitor 40 mg every night. 4. Enalapril 20 mg daily. 5. HCTZ 25 mg daily. 6. Potassium chloride 20 mEq daily. 7. Verapamil 240 mg daily. REVIEW OF SYSTEMS: There has been no chest pain or shortness of breath described. She denies any diarrhea or any fever. A comprehensive review of systems was performed and the pertinent positives are listed, the rest are negative. FAMILY HISTORY: No inherited family diseases. SOCIAL HISTORY: She lives alone, is independent, she never smoked, has no history of alcohol use or abuse, and no substance abuse history. PHYSICAL EXAM GENERAL: Elderly white female. She is in mild distress and has an NG tube in place. VITAL SIGNS: Blood pressure 160/70, heart rate 100 in sinus rhythm, afebrile, room air saturation 98%. HEENT: Shows dry oral mucosa. NG tube in place to suction. NECK: No JVD. CHEST: Clear. HEART: Normal heart sounds. ABDOMEN: Soft. No rebound. Decreased bowel sounds. EXTREMITIES: No clubbing, cyanosis or edema. NEUROLOGIC: Grossly intact. LABORATORY DATA: Sodium 131, potassium 3.6, bilirubin 1.1. Normal liver tests. Otherwise, lipase normal at 25. White blood count elevated at 14.1, hemoglobin 14, platelet count normal at 230. Urinalysis has high protein and high ketones, but otherwise unremarkable. She had a COVID test done, which is negative. EKG: Normal sinus rhythm, right bundle branch block, left posterior fascicular block. IMAGING: Chest x-ray showed no active pulmonary disease and NG tube, which needed repositioning, now has the tip below the level of the diaphragm. Abdomen and pelvis CT: Developing small-bowel obstruction with a transition point within the central pelvis. She has a colectomy with right lower quadrant ostomy, and there is small bowel containing parastomal hernia. There is no bowel strangulation. There is cardiomegaly with a pericardial effusion. IMPRESSION/DIAGNOSES 1. Small-bowel obstruction. 2. Ulcerative colitis. 3. Ostomy. 4. Pericardial effusion of unknown etiology. 5. History of hypertension. 6. Hyperlipidemia. PLAN: Admit patient to medical/surgical status, inpatient. General surgery consult appreciated and following along with us. Continue with plan for bowel rest, NG tube decompression and await to see if there is resolution of the obstruction. Dr. Suggs stated she might then use oral Gastrografin to see if that would help with the obstruction, and the next step would be to consider surgery. Continue with IV hydration, antiemetics, pain medication p.r.n., will change her essential medicines to IV form: plan on using IV Cardizem instead of p.o. verapamil and will add topical clonidine for blood pressure control. Will order full Echo to evaluate the pericardial effusion size; there is does not appear to be tamponade physiology from here her vital signs or clinical exam. Telemetry ordered, given the pericardial effusion. DEEP VENOUS THROMBOSIS PROPHYLAXIS: Pharmacotherapy using Lovenox CODE STATUS: FULL CODE. ATTESTATION: Patient is expected to be discharged or transferred to another facility within 96 hours: Yes. cc: Leighton Youssef MD TD: 05/19/2020 14:18 MTDAniya
[2020-05-19] MEDS ORDERED: cloNIDine 0.2 MG PATCH TOP SCH (15:30)
[2020-05-19] MEDS: diltiaZEM INJ 5 MG/ML VIAL IVP SCH (20:40)
[2020-05-20] MEDS: D5NS W/20 MEQ KCL 1,000 ML IV SCH ×4 (00:05→23:43)
[2020-05-20] MEDS ORDERED: SODIUM CHLORIDE 0.9% 500 ML IV PRN (03:27)
[2020-05-20 05:33] LABS: BASOPHILS % (AUTO) 0.2 %; HGB - HEMOGLOBIN 12.5 g/dL (12.0-16.0); LYMPHOCYTES # (AUTO) 0.7 10^3/uL (1.5-3.5); LYMPHOCYTES % (AUTO) 6.9 %; MEAN CORPUSCULAR HEMOGLOBIN 24.4 pg (27.0-31.0); MEAN CORPUSCULAR HGB CONC 32.3 g/dL (32.0-36.0); MEAN CORPUSCULAR VOLUME 75.4 fL (81.0-99.0); MEAN PLATELET VOLUME 11.2 fL (7.9-10.8); MONOCYTES # (AUTO) 0.8 10^3/uL (0.0-1.0); MONOCYTES % (AUTO) 7.8 %; NEUTROPHILS # (AUTO) 8.6 10^3/uL (1.5-6.6); NEUTROPHILS % (AUTO) 84.7 %; PLT - PLATELET COUNT 197 10^3/uL (130-450); RED BLOOD COUNT 5.13 10^6/uL (4.20-5.40); RED CELL DISTRIBUTION WIDTH 14.3 % (12.0-15.0); WHITE BLOOD COUNT 10.2 x10^3/uL (4.8-10.8)
[2020-05-20 05:43] LABS: CALCIUM 8.4 mg/dL (8.5-10.3); CREATININE 0.7 mg/dL (0.4-1.0)
[2020-05-20] MEDS: PANTOPRAZOLE 40 MG VIAL IVP SCH (06:24)
[2020-05-20] MEDS ORDERED: MORPHINE 2 MG/ML CARPUJECT IVP PRN (07:20)
[2020-05-20] MEDS: SODIUM CHLORIDE FLUSH 0.9% 10 ML SYRINGE IVP SCH ×3 (07:55→23:44)
[2020-05-20] MEDS: ONDANSETRON 4 MG/2 ML VIAL IVP PRN (07:55)
[2020-05-20] MEDS: diltiaZEM INJ 5 MG/ML VIAL IVP SCH ×2 (08:56→23:08)
[2020-05-20] MEDS: ENOXAPARIN 40 MG/0.4 ML SYRINGE SUBQ SCH (08:56)
[2020-05-20] MEDS ORDERED: ACETAMINOPHEN 1,000 MG/100 ML 100 ML IV PRN (10:39)
[2020-05-20] MEDS ORDERED: DIATRIZOATE MEGLU/DIATRIZO SOD 30 ML BOTTLE PO ONE (13:48)
--- NOTE | 2020-05-20 15:11 | PROVIDER PROGRESS NOTE ---
Subjective - General Admit Date: 05/19/20 - Review of Systems General: positive: No symptoms HEENT: positive: No symptoms Pulmonary: positive: No symptoms Gastrointestinal: positive: No symptoms, Flatus. negative: Nausea, Vomiting, Abdominal pain - Other Other Information/Narrative: Pearl reports she feels much better today. She denies any abdominal pain and is quite hungry. She reports there has been some flatus in her ostomy bag as well. Objective - Patient Data Vital Signs: Vital Signs x48h Temp Pulse Pulse Resp BP BP Pulse Ox 05/20/20 13:29 37.1 C 86 17 150/66 H 96 05/20/20 09:04 37.1 C 99 16 97 05/20/20 08:56 140/67 H Weight: Weight 05/18/20 05/19/20 05/20/20 23:59 23:59 23:59 Weight (kg) 61.235 kg Intake & Output: Intake and Output Totals x24h 05/18/20 05/19/20 05/20/20 23:59 23:59 23:59 Intake Total 201.222 5012.167 Output Total 475 525 Balance 640.450 9688.167 - Lab Results Lab Results: 05/20/20 05:21 05/20/20 05:21 Other Lab Results: Lab Results x24hrs 05/20/20 05/20/20 Range/Units 05:21 05:21 WBC 10.2 (4.8-10.8) x10^3/uL RBC 5.13 (4.20-5.40) 10^6/uL Hgb 12.5 (12.0-16.0) g/dL Hct 38.7 (37.0-47.0) % MCV 75.4 L (81.0-99.0) fL MCH 24.4 L (27.0-31.0) pg MCHC 32.3 (32.0-36.0) g/dL RDW 14.3 (12.0-15.0) % Plt Count 197 (130-450) 10^3/uL MPV 11.2 H (7.9-10.8) fL Neut # (Auto) 8.6 H (1.5-6.6) 10^3/uL Lymph # (Auto) 0.7 L (1.5-3.5) 10^3/uL [place] # (Auto) 0.8 (0.0-1.0) 10^3/uL Eos # (Auto) 0.0 (0.0-0.7) 10^3/uL Baso # (Auto) 0.0 (0.0-0.1) 10^3/uL Absolute Nucleated RBC 0.00 x10^3/uL Nucleated RBC % 0.0 /100WBC Sodium 131 L (135-145) mmol/L Potassium 4.0 (3.5-5.0) mmol/L Chloride 97 L (101-111) mmol/L Carbon Dioxide 24 (21-32) mmol/L Anion Gap 10.0 (6-13) BUN 21 H (6-20) mg/dL Creatinine 0.7 (0.4-1.0) mg/dL Estimated GFR (MDRD) 80 L (>89) Glucose 157 H (70-100) mg/dL Calcium 8.4 L (8.5-10.3) mg/dL - Current Medications Current Medications: Current Medications Generic Name Dose Route Start Last Admin Trade Name Freq PRN Reason Stop Dose Admin Clonidine HCl 1 patch 05/19/20 15:30 05/19/20 16:03 [id number] TOP 1 patch Q7D GUTIERREZ Administration Diltiazem HCl 5 mg 05/19/20 21:00 05/20/20 08:56 Cardizem Inj IVP Not Given BID GUTIERREZ Enoxaparin Sodium 40 mg 05/19/20 09:00 05/20/20 08:56 Lovenox SUBQ 40 mg DAILY GUTIERREZ Administration Potassium Chloride/Dextrose/Sod Cl 1,000 mls @ 125 mls/hr 05/19/20 23:00 05/20/20 07:55 IV 125 mls/hr .Q8H GUTIERREZ Administration Acetaminophen 100 mls @ 400 mls/hr 05/20/20 10:39 05/20/20 14:44 Ofirmev IV Infused Q6HR PRN Infusion PAIN Ondansetron HCl 4 mg 05/19/20 06:43 05/20/20 07:55 Zofran Inj IVP 4 mg Q4HR PRN Administration Nausea / Vomiting Pantoprazole Sodium 40 mg 05/19/20 07:00 05/20/20 06:24 Protonix IVP 40 mg QDAC GUTIERREZ Administration Sodium Chloride 10 ml 05/19/20 09:00 05/20/20 07:55 Normal Saline Flush 0.9% IVP 10 ml 0100,0900,1700 GUTIERREZ Administration - Physical Exam Abdomen: positive: Non-tender, Nml bowel sounds, No distention Impression/Plan - Problem List Problem List: Early partial small bowel obstruction - appears to be resolving. We will give the patient 60 mls of gastrograffin per NGT and then remove the tube. Abdominal xrays in the AM.
--- NOTE | 2020-05-20 19:32 | PROVIDER PROGRESS NOTE ---
Assessment/Plan - Problem List (1) Small bowel obstruction Assessment/Plan: Patient had output from her ileostomy today. NG tube was removed today. She received a clear liquid diet today. Her diet will be further advanced as tolerated tomorrow. She is on D5 normal saline with 20 of potassium at 75ml/hr. Dr Suggs with general surgery is following. She was given diatrizoate (2) Hypertension Assessment/Plan: Her verapamil was changed to diltiazem 5 mg IV twice daily. She is also on clonidine 0.2 mg patch. 1 patch topical q. 7 days. (3) Hyperlipidemia Assessment/Plan: Will resume her atorvastatin 40 mg p.o. every afternoon. (4) Pericardial effusion Assessment/Plan: This is known and has been building up over time. 2D echocardiogram pending Patient's blood pressure is running on the high side. Patient does not have tamponade. - Current Meds Current Meds: Current Medications Generic Name Dose Route Start Last Admin Trade Name Freq PRN Reason Stop Dose Admin Clonidine HCl 1 patch 05/19/20 15:30 05/19/20 16:03 [id number] TOP 1 patch Q7D GUTIERREZ Administration Diltiazem HCl 5 mg 05/19/20 21:00 05/20/20 08:56 Cardizem Inj IVP Not Given BID GUTIERREZ Enoxaparin Sodium 40 mg 05/19/20 09:00 05/20/20 08:56 Lovenox SUBQ 40 mg DAILY GUTIERREZ Administration Potassium Chloride/Dextrose/Sod Cl 1,000 mls @ 125 mls/hr 05/19/20 23:00 05/20/20 16:05 IV 125 mls/hr .Q8H GUTIERREZ Administration Acetaminophen 100 mls @ 400 mls/hr 05/20/20 10:39 05/20/20 14:44 Ofirmev IV Infused Q6HR PRN Infusion PAIN Ondansetron HCl 4 mg 05/19/20 06:43 05/20/20 07:55 Zofran Inj IVP 4 mg Q4HR PRN Administration Nausea / Vomiting Pantoprazole Sodium 40 mg 05/19/20 07:00 05/20/20 06:24 Protonix IVP 40 mg QDAC GUTIERREZ Administration Sodium Chloride 10 ml 05/19/20 09:00 05/20/20 16:06 Normal Saline Flush 0.9% IVP Not Given 0100,0900,1700 GUTIERREZ - Lab Result Fish Bone Diagrams: 05/20/20 05:21 05/20/20 05:21 - Additional Planning My Orders: My Active Orders 05/20/20 09:10 Incentive Spirometry - RT [RC] .TID 05/21/20 05:00 BMP - BASIC METABOLIC PANEL [CHEM] DAILYLAB CBC - COMP BLD CT W/AUTO DIFF [HEME] DAILYLAB 05/22/20 05:00 BMP - BASIC METABOLIC PANEL [CHEM] DAILYLAB CBC - COMP BLD CT W/AUTO DIFF [HEME] DAILYLAB 05/23/20 05:00 BMP - BASIC METABOLIC PANEL [CHEM] DAILYLAB CBC - COMP BLD CT W/AUTO DIFF [HEME] DAILYLAB 05/24/20 05:00 BMP - BASIC METABOLIC PANEL [CHEM] DAILYLAB CBC - COMP BLD CT W/AUTO DIFF [HEME] DAILYLAB Subjective - Subjective Patient Reports: Other (Patient was resting comfortably in bed at the time of exam. Her only concern was that her hands seem puffy. She thought she was receiving too much fluid. She denied any abdominal pain, nausea or vomiting.) Objective Vital Signs: Vital Signs - 24 hr 05/19/20 05/19/20 05/19/20 20:36 20:40 20:45 Temperature 37.0 C Heart Rate Heart Rate [ 121 H 119 H Brachial] Heart Rate [ Monitoring electrodes] Respiratory 20 Rate Blood Pressure 164/81 H Blood Pressure 164/81 H 164/84 H [Left Brachial artery] O2 Saturation 94 05/19/20 05/19/20 05/19/20 20:50 20:55 21:10 Temperature Heart Rate Heart Rate [ 116 H 108 H 107 H Brachial] Heart Rate [ Monitoring electrodes] Respiratory Rate Blood Pressure Blood Pressure 134/98 H 144/80 H 163/73 H [Left Brachial artery] O2 Saturation 05/19/20 05/19/20 05/19/20 21:25 21:40 22:05 Temperature Heart Rate Heart Rate [ 105 H 109 H 102 H Brachial] Heart Rate [ Monitoring electrodes] Respiratory Rate Blood Pressure Blood Pressure 166/69 H 167/84 H 166/77 H [Left Brachial artery] O2 Saturation 05/19/20 05/20/20 05/20/20 23:19 03:00 04:01 Temperature 37.1 C 36.7 C Heart Rate Heart Rate [ 112 H Brachial] Heart Rate [ 102 H 110 H Monitoring electrodes] Respiratory 16 16 Rate Blood Pressure Blood Pressure 161/68 H 170/85 H 159/73 H [Left Brachial artery] O2 Saturation 97 99 05/20/20 05/20/20 05/20/20 07:06 08:56 09:04 Temperature 37.1 C 37.1 C Heart Rate 99 Heart Rate [ Brachial] Heart Rate [ 99 Monitoring electrodes] Respiratory 16 16 Rate Blood Pressure 140/67 H Blood Pressure 160/71 H [Left Brachial artery] O2 Saturation 97 97 05/20/20 05/20/20 13:29 17:00 Temperature 37.1 C 37.3 C Heart Rate Heart Rate [ 86 100 Brachial] Heart Rate [ Monitoring electrodes] Respiratory 17 18 Rate Blood Pressure Blood Pressure 150/66 H 159/59 H [Left Brachial artery] O2 Saturation 96 97 Oxygen O2 Source Room air I&O (Last 24 Hrs): Intake and Output Totals x24h 05/18/20 05/19/20 05/20/20 23:59 23:59 23:59 Intake Total 296.509 9031.167 Output Total 475 1125 Balance 228.447 1207.167 General: Alert, Oriented x3, No acute distress HEENT: PERRLA, EOMI Neck: No JVD Neuro: Alert, Oriented Times 3 Cardiovascular: Regular rate Respiratory: Chest non-tender, No respiratory distress, Breath sounds nml Abdomen: Normal bowel sounds, Soft, No tenderness, Other (Ileostomy in place and functioning well.) Extremities: No clubbing, No cyanosis, No edema Skin: No rashes - Results Results: Laboratory Results WBC 10.2 x10^3/uL (4.8-10.8) 05/20/20 05:21 RBC 5.13 10^6/uL (4.20-5.40) 05/20/20 05:21 Hgb 12.5 g/dL (12.0-16.0) 05/20/20 05:21 Hct 38.7 % (37.0-47.0) 05/20/20 05:21 MCV 75.4 fL (81.0-99.0) L 05/20/20 05:21 MCH 24.4 pg (27.0-31.0) L 05/20/20 05:21 MCHC 32.3 g/dL (32.0-36.0) 05/20/20 05:21 RDW 14.3 % (12.0-15.0) 05/20/20 05:21 Plt Count 197 10^3/uL (130-450) 05/20/20 05:21 MPV 11.2 fL (7.9-10.8) H 05/20/20 05:21 Neut # (Auto) 8.6 10^3/uL (1.5-6.6) H 05/20/20 05:21 Lymph # (Auto) 0.7 10^3/uL (1.5-3.5) L 05/20/20 05:21 [place] # (Auto) 0.8 10^3/uL (0.0-1.0) 05/20/20 05:21 Eos # (Auto) 0.0 10^3/uL (0.0-0.7) 05/20/20 05:21 Baso # (Auto) 0.0 10^3/uL (0.0-0.1) 05/20/20 05:21 Absolute Nucleated RBC 0.00 x10^3/uL 05/20/20 05:21 Nucleated RBC % 0.0 /100WBC 05/20/20 05:21 Sodium 131 mmol/L (135-145) L 05/20/20 05:21 Potassium 4.0 mmol/L (3.5-5.0) 05/20/20 05:21 Chloride 97 mmol/L (101-111) L 05/20/20 05:21 Carbon Dioxide 24 mmol/L (21-32) 05/20/20 05:21 Anion Gap 10.0 (6-13) 05/20/20 05:21 BUN 21 mg/dL (6-20) H 05/20/20 05:21 Creatinine 0.7 mg/dL (0.4-1.0) 05/20/20 05:21 Estimated GFR (MDRD) 80 (>89) L 05/20/20 05:21 Glucose 157 mg/dL (70-100) H 05/20/20 05:21 Calcium 8.4 mg/dL (8.5-10.3) L 05/20/20 05:21 Total Bilirubin 1.1 mg/dL (0.2-1.0) H 05/19/20 00:50 AST 22 IU/L (10-42) 05/19/20 00:50 ALT 23 IU/L (10-60) 05/19/20 00:50 Alkaline Phosphatase 98 IU/L (42-121) 05/19/20 00:50 Total Protein 7.8 g/dL (6.7-8.2) 05/19/20 00:50 Albumin 4.5 g/dL (3.2-5.5) 05/19/20 00:50 Globulin 3.3 g/dL (2.1-4.2) 05/19/20 00:50 Albumin/Globulin Ratio 1.4 (1.0-2.2) 05/19/20 00:50 Lipase 25 U/L (22-51) 05/19/20 00:50 Urine Color YELLOW 05/19/20 04:25 Urine Clarity CLEAR (CLEAR) 05/19/20 04:25 Urine pH 6.0 PH (5.0-7.5) 05/19/20 04:25 Ur Specific [place] 1.020 (1.002-1.030) 05/19/20 04:25 Urine Protein 30 mg/dL (NEGATIVE) H 05/19/20 04:25 Urine Glucose (UA) NEGATIVE mg/dL (NEGATIVE) 05/19/20 04:25 Urine Ketones 15 mg/dL (NEGATIVE) H 05/19/20 04:25 Urine Occult Blood TRACE-INTA (NEGATIVE) 05/19/20 04:25 Urine Nitrite NEGATIVE (NEGATIVE) 05/19/20 04:25 Urine Bilirubin NEGATIVE (NEGATIVE) 05/19/20 04:25 Urine Urobilinogen 0.2 (NORMAL) E.U./dL (NORMAL) 05/19/20 04:25 Ur Leukocyte Esterase NEGATIVE (NEGATIVE) 05/19/20 04:25 Urine RBC 0-5 /HPF (0-5) 05/19/20 04:25 Urine WBC 0-3 /HPF (0-5) 05/19/20 04:25 Ur Squamous Epith Cells RARE Squamous (<= Few) 05/19/20 04:25 Urine Bacteria None Seen /HPF (None Seen) 05/19/20 04:25 Ur Microscopic Review INDICATED 05/19/20 04:25 Urine Culture Comments NOT INDICATED 05/19/20 04:25 SARS-CoV-2 (PCR) NOT DETECTED 05/19/20 05:37 - Procedures Procedures: Procedures ESOPHAGEAL DILATION (04/30/14) OTHER ENDOSCOPY OF SM INTEST (04/30/14) ABX Reporting Has patient been on IV antibiotics over the past 48 hours?: No
[2020-05-21 05:43] LABS: BASOPHILS % (AUTO) 0.5 %; EOSINOPHILS # (AUTO) 0.1 10^3/uL (0.0-0.7); EOSINOPHILS % (AUTO) 2.1 %; HGB - HEMOGLOBIN 10.6 g/dL (12.0-16.0); LYMPHOCYTES % (AUTO) 16.5 %; MEAN CORPUSCULAR HEMOGLOBIN 24.4 pg (27.0-31.0); MEAN CORPUSCULAR HGB CONC 31.4 g/dL (32.0-36.0); MEAN CORPUSCULAR VOLUME 77.9 fL (81.0-99.0); MEAN PLATELET VOLUME 11.5 fL (7.9-10.8); MONOCYTES # (AUTO) 0.7 10^3/uL (0.0-1.0); MONOCYTES % (AUTO) 11.5 %; NEUTROPHILS % (AUTO) 69.2 %; PLT - PLATELET COUNT 153 10^3/uL (130-450); RED BLOOD COUNT 4.34 10^6/uL (4.20-5.40); RED CELL DISTRIBUTION WIDTH 14.4 % (12.0-15.0); WHITE BLOOD COUNT 5.8 x10^3/uL (4.8-10.8)
[2020-05-21 05:51] LABS: CALCIUM 8.2 mg/dL (8.5-10.3); CREATININE 0.6 mg/dL (0.4-1.0)
--- NOTE | 2020-05-21 06:01 | PROVIDER PROGRESS NOTE ---
Subjective - General Admit Date: 05/19/20 - Review of Systems General: positive: No symptoms HEENT: positive: No symptoms Pulmonary: positive: No symptoms Gastrointestinal: positive: No symptoms, Flatus. negative: Nausea, Vomiting, Abdominal pain Objective - Patient Data Vital Signs: Vital Signs x48h Temp Pulse Resp BP BP BP Pulse Ox 05/21/20 04:02 36.8 C 92 20 157/65 H 96 05/20/20 23:55 70 164/63 H 05/20/20 23:30 69 162/64 H 05/20/20 23:25 70 153/51 H 05/20/20 23:20 78 170/138 H 05/20/20 23:10 36.9 C 74 18 165/64 H 96 05/20/20 23:08 165/64 H Weight: Weight 05/19/20 05/20/20 05/21/20 23:59 23:59 23:59 Weight (kg) 61.235 kg Intake & Output: Intake and Output Totals x24h 05/19/20 05/20/20 05/21/20 23:59 23:59 23:59 Intake Total 816.251 9888.251 Output Total 475 1225 200 Balance 354.623 2309.251 -200 - Lab Results Lab Results: 05/21/20 05:20 05/21/20 05:20 Other Lab Results: Lab Results x24hrs 05/21/20 05/21/20 Range/Units 05:20 05:20 WBC 5.8 (4.8-10.8) x10^3/uL RBC 4.34 (4.20-5.40) 10^6/uL Hgb 10.6 L (12.0-16.0) g/dL Hct 33.8 L (37.0-47.0) % MCV 77.9 L (81.0-99.0) fL MCH 24.4 L (27.0-31.0) pg MCHC 31.4 L (32.0-36.0) g/dL RDW 14.4 (12.0-15.0) % Plt Count 153 (130-450) 10^3/uL MPV 11.5 H (7.9-10.8) fL Neut # (Auto) 4.0 (1.5-6.6) 10^3/uL Lymph # (Auto) 1.0 L (1.5-3.5) 10^3/uL [place] # (Auto) 0.7 (0.0-1.0) 10^3/uL Eos # (Auto) 0.1 (0.0-0.7) 10^3/uL Baso # (Auto) 0.0 (0.0-0.1) 10^3/uL Absolute Nucleated RBC 0.00 x10^3/uL Nucleated RBC % 0.0 /100WBC Sodium 137 (135-145) mmol/L Potassium 3.7 (3.5-5.0) mmol/L Chloride 106 (101-111) mmol/L Carbon Dioxide 23 (21-32) mmol/L Anion Gap 8.0 (6-13) BUN 17 (6-20) mg/dL Creatinine 0.6 (0.4-1.0) mg/dL Estimated GFR (MDRD) 96 (>89) Glucose 116 H (70-100) mg/dL Calcium 8.2 L (8.5-10.3) mg/dL - Imaging Results Imaging Results Comments: Abdominal film pending this AM - Current Medications Current Medications: Current Medications Generic Name Dose Route Start Last Admin Trade Name Freq PRN Reason Stop Dose Admin Clonidine HCl 1 patch 05/19/20 15:30 05/19/20 16:03 [id number] TOP 1 patch Q7D GUTIERREZ Administration Diltiazem HCl 5 mg 05/19/20 21:00 05/20/20 23:08 Cardizem Inj IVP 5 mg BID GUTIERREZ Administration Enoxaparin Sodium 40 mg 05/19/20 09:00 05/20/20 08:56 Lovenox SUBQ 40 mg DAILY GUTIERREZ Administration Acetaminophen 100 mls @ 400 mls/hr 05/20/20 10:39 05/20/20 14:44 Ofirmev IV Infused Q6HR PRN Infusion PAIN Ondansetron HCl 4 mg 05/19/20 06:43 05/20/20 07:55 Zofran Inj IVP 4 mg Q4HR PRN Administration Nausea / Vomiting Pantoprazole Sodium 40 mg 05/19/20 07:00 05/20/20 06:24 Protonix IVP 40 mg QDAC GUTIERREZ Administration Sodium Chloride 10 ml 05/19/20 09:00 05/20/20 23:44 Normal Saline Flush 0.9% IVP Not Given 0100,0900,1700 GUTIERREZ - Physical Exam Abdomen: positive: Nml bowel sounds, No distention, Tenderness (Very minimal tenderness now.). negative: Guarding, Rebound Neurologic/Psychiatric: positive: Oriented x3 Impression/Plan - Problem List Problem List: Small bowel obstruction appears to be resolving. Will advance diet this AM and check KUB when completed.
[2020-05-21] MEDS: PANTOPRAZOLE 40 MG VIAL IVP SCH (06:21)
[2020-05-21] MEDS: D5NS W/20 MEQ KCL 1,000 ML IV SCH ×2 (08:30→14:13)
[2020-05-21] MEDS: diltiaZEM INJ 5 MG/ML VIAL IVP SCH (08:33)
[2020-05-21] MEDS: ENOXAPARIN 40 MG/0.4 ML SYRINGE SUBQ SCH (08:35)
[2020-05-21] MEDS ORDERED: ACETAMINOPHEN/CODEINE 300 MG/30 MG TABLET PO PRN (08:35)
--- NOTE | 2020-05-21 08:36 | XRAY Report ---
PROCEDURE: Abdomen Acute INDICATIONS: Small bowel obstruction TECHNIQUE: One view chest and two views of the abdomen were acquired. COMPARISON: 05/19/2020 CT abdomen and pelvis FINDINGS: Surgical changes and devices: None. Chest: Lungs are clear. Heart size is normal. No pleural effusions. No pneumoperitoneum. Abdomen: Dilated loops consistent with small bowel obstruction, not significantly changed from the co mparison CT. There are a few fluid levels seen on the upright image. No pneumoperitoneum or pneumatos is identified. Bones: No suspicious bony lesions. IMPRESSION: Mildly dilated loops of small bowel with air-fluid levels consistent with partial small bowel obstruc tion. Reviewed by: Michoacano Rodríguez MD on 05/21/2020 8:35 AM PST Approved by: Michoacano Rodríguez MD on 05/21/2020 8:35 AM PST Station ID: [id number]
[2020-05-21] MEDS: SODIUM CHLORIDE FLUSH 0.9% 10 ML SYRINGE IVP SCH ×2 (08:42→16:43)
[2020-05-21 08:48] LABS: ABSOLUTE RETICS # AUTO 0.038 10^6/uL (0.020-0.110); RED BLOOD COUNT 4.32 10^6/uL (4.20-5.40)
[2020-05-21] MEDS ORDERED: VERAPAMIL ER 120 MG TABLET PO SCH ×2 (09:00→21:00)
[2020-05-21] MEDS ORDERED: ASPIRIN EC 81 MG TABLET PO SCH (09:00)
[2020-05-21] MEDS ORDERED: FERROUS SULFATE 325 MG TABLET PO SCH (09:00)
[2020-05-21 09:30] LABS: % IRON SATURATION 18 % (20-50); FERRITIN 95.8 ng/mL (11.0-306.8); IRON 45 ug/dL (28-170); TOTAL IRON BINDING CAPACITY 245 ug/dL (250-450); TRANSFERRIN 175 mg/dL (192-382)
[2020-05-21] MEDS: ENALAPRIL 5 MG TABLET PO SCH (10:37)
[2020-05-21] MEDS ORDERED: DICYCLOMINE 10 MG CAPSULE PO PRN (13:46)
--- NOTE | 2020-05-21 15:11 | PROVIDER PROGRESS NOTE ---
Assessment/Plan - Problem List (1) Small bowel obstruction Assessment/Plan: Patient still complain nausea or vomiting after she ate, Abdominal pain was improved, Patient did pass some gas and stool in the ileostomy bag, X-ray of abdomen still show partially bowel obstruction. NG tube was already removed. Patient did have Gastrografin challenge on yesterday. Encourage patient walk, and ambulation,At the same time consult with physical therapist and occupational therapist. And consult with inspector handbag frames. (2) Hypertension Resume home blood pressure medicine, hold intravenous blood pressure medicine in the hospital (3) Hyperlipidemia Stable, resume home medication (4) Pericardial effusion there is a small pericardial effusion, Patient does not have tamponade. (5)weakness Patient present profound weakness, we will consult with physical therapist and occupational therapist - Current Meds Current Meds: Current Medications Generic Name Dose Route Start Last Admin Trade Name Freq PRN Reason Stop Dose Admin Aspirin 81 mg 05/21/20 09:00 05/21/20 10:36 Ecotrin PO 81 mg DAILY GUTIERREZ Administration Clonidine HCl 1 patch 05/19/20 15:30 05/19/20 16:03 [id number] TOP 1 patch Q7D GUTIERREZ Administration Dicyclomine HCl 10 mg 05/21/20 13:46 05/21/20 14:13 Bentyl PO 10 mg QID PRN Administration Abdominal Pain Enalapril Maleate 20 mg 05/21/20 09:00 05/21/20 10:37 Vasotec PO 20 mg DAILY GUTIERREZ Administration Enoxaparin Sodium 40 mg 05/19/20 09:00 05/21/20 08:35 Lovenox SUBQ 40 mg DAILY GUTIERREZ Administration Acetaminophen 100 mls @ 400 mls/hr 05/20/20 10:39 05/20/20 14:44 Ofirmev IV Infused Q6HR PRN Infusion PAIN Potassium Chloride/Dextrose/Sod Cl 1,000 mls @ 75 mls/hr 05/20/20 23:46 05/21/20 14:13 IV 75 mls/hr .[id number] GUTIERREZ Administration Ondansetron HCl 4 mg 05/19/20 06:43 05/20/20 07:55 Zofran Inj IVP 4 mg Q4HR PRN Administration Nausea / Vomiting Pantoprazole Sodium 40 mg 05/19/20 07:00 05/21/20 06:21 Protonix IVP 40 mg QDAC GUTIERREZ Administration Sodium Chloride 10 ml 05/19/20 06:43 05/21/20 06:21 Normal Saline Flush 0.9% IVP 10 ml PRN PRN Administration NEEDED PER PROVIDER ORDERS Sodium Chloride 10 ml 05/19/20 09:00 05/21/20 08:42 Normal Saline Flush 0.9% IVP Not Given 0100,0900,1700 GUTIERREZ - Lab Result Fish Bone Diagrams: 05/21/20 05:20 05/21/20 05:20 - Additional Planning My Orders: My Active Orders 05/21/20 Evaluate and Treat OT [OT] Routine Evaluate and Treat PT [PT] Routine 05/21/20 08:35 Acetaminophen/Cod 300/30 [Tylenol #3] 1 tab PO TID PRN 05/21/20 09:00 Aspirin EC [Ecotrin] 81 mg PO DAILY Enalapril [Vasotec] 20 mg PO DAILY 05/21/20 11:10 Nutrition Consult [CONS] Routine 05/21/20 12:12 Out of bed 4+ hours [RC] QID 05/21/20 13:46 Dicyclomine [Bentyl] 10 mg PO QID PRN 05/21/20 21:00 Verapamil ER [Calan SA] 240 mg PO QPM Subjective - Subjective Patient Reports: Feeling Better Objective Vital Signs: Vital Signs - 24 hr 05/20/20 05/20/20 05/20/20 17:00 23:08 23:10 Temperature 37.3 C 36.9 C Heart Rate [ Activity] Heart Rate [ 100 74 Brachial] Respiratory 18 18 Rate Blood Pressure 165/64 H Blood Pressure [Activity] Blood Pressure 159/59 H [Left Brachial artery] Blood Pressure 165/64 H [Right Brachial artery] O2 Saturation 97 96 05/20/20 05/20/20 05/20/20 23:20 23:25 23:30 Temperature Heart Rate [ Activity] Heart Rate [ 78 70 69 Brachial] Respiratory Rate Blood Pressure Blood Pressure [Activity] Blood Pressure 170/138 H 153/51 H 162/64 H [Left Brachial artery] Blood Pressure [Right Brachial artery] O2 Saturation 05/20/20 05/21/20 05/21/20 23:55 00:00 00:15 Temperature Heart Rate [ Activity] Heart Rate [ 70 71 71 Brachial] Respiratory Rate Blood Pressure Blood Pressure [Activity] Blood Pressure 164/63 H 162/61 H 155/57 H [Left Brachial artery] Blood Pressure [Right Brachial artery] O2 Saturation 05/21/20 05/21/20 05/21/20 00:30 04:02 08:33 Temperature 36.8 C Heart Rate [ Activity] Heart Rate [ 69 92 Brachial] Respiratory 20 Rate Blood Pressure 126/45 L Blood Pressure [Activity] Blood Pressure 159/62 H 157/65 H [Left Brachial artery] Blood Pressure [Right Brachial artery] O2 Saturation 96 05/21/20 05/21/20 10:02 13:40 Temperature 37.1 C Heart Rate [ 80 Activity] Heart Rate [ 82 Brachial] Respiratory 18 Rate Blood Pressure Blood Pressure 163/58 H [Activity] Blood Pressure 124/36 L [Left Brachial artery] Blood Pressure [Right Brachial artery] O2 Saturation 97 Oxygen O2 Source Room air I&O (Last 24 Hrs): Intake and Output Totals x24h 05/19/20 05/20/20 05/21/20 23:59 23:59 23:59 Intake Total 032.673 3615.251 1329.083 Output Total 475 1225 660 Balance 856.083 0925.251 669.083 General: Alert, Oriented x3, No acute distress HEENT: Atraumatic Neck: Supple Lymphatic: no adenopathy Neuro: Alert, Non Focal Cardiovascular: Regular rate, Normal S1, Normal S2 Respiratory: Chest non-tender, No respiratory distress, Breath sounds nml Abdomen: Normal bowel sounds, Soft, No tenderness Extremities: Normal pulses - Results Results: Laboratory Results WBC 5.8 x10^3/uL (4.8-10.8) 05/21/20 05:20 RBC 4.32 10^6/uL (4.20-5.40) 05/21/20 05:20 RBC 4.34 10^6/uL (4.20-5.40) 05/21/20 05:20 Hgb 10.6 g/dL (12.0-16.0) L 05/21/20 05:20 Hct 33.8 % (37.0-47.0) L 05/21/20 05:20 MCV 77.9 fL (81.0-99.0) L 05/21/20 05:20 MCH 24.4 pg (27.0-31.0) L 05/21/20 05:20 MCHC 31.4 g/dL (32.0-36.0) L 05/21/20 05:20 RDW 14.4 % (12.0-15.0) 05/21/20 05:20 Plt Count 153 10^3/uL (130-450) 05/21/20 05:20 MPV 11.5 fL (7.9-10.8) H 05/21/20 05:20 Reticulocyte % (Auto) 0.89 % (0.5-2.3) 05/21/20 05:20 Neut # (Auto) 4.0 10^3/uL (1.5-6.6) 05/21/20 05:20 Lymph # (Auto) 1.0 10^3/uL (1.5-3.5) L 05/21/20 05:20 [place] # (Auto) 0.7 10^3/uL (0.0-1.0) 05/21/20 05:20 Eos # (Auto) 0.1 10^3/uL (0.0-0.7) 05/21/20 05:20 Baso # (Auto) 0.0 10^3/uL (0.0-0.1) 05/21/20 05:20 Absolute Nucleated RBC 0.00 x10^3/uL 05/21/20 05:20 Nucleated RBC % 0.0 /100WBC 05/21/20 05:20 Absolute Retic 0.038 10^6/uL (0.020-0.110) 05/21/20 05:20 Sodium 137 mmol/L (135-145) 05/21/20 05:20 Potassium 3.7 mmol/L (3.5-5.0) 05/21/20 05:20 Chloride 106 mmol/L (101-111) 05/21/20 05:20 Carbon Dioxide 23 mmol/L (21-32) 05/21/20 05:20 Anion Gap 8.0 (6-13) 05/21/20 05:20 BUN 17 mg/dL (6-20) 05/21/20 05:20 Creatinine 0.6 mg/dL (0.4-1.0) 05/21/20 05:20 Estimated GFR (MDRD) 96 (>89) 05/21/20 05:20 Glucose 116 mg/dL (70-100) H 05/21/20 05:20 Calcium 8.2 mg/dL (8.5-10.3) L 05/21/20 05:20 Iron 45 ug/dL (28-170) 05/21/20 05:20 TIBC 245 ug/dL (250-450) L 05/21/20 05:20 % Saturation 18 % (20-50) L 05/21/20 05:20 Transferrin 175 mg/dL (192-382) L 05/21/20 05:20 Ferritin 95.8 ng/mL (11.0-306.8) 05/21/20 05:20 Total Bilirubin 1.1 mg/dL (0.2-1.0) H 05/19/20 00:50 AST 22 IU/L (10-42) 05/19/20 00:50 ALT 23 IU/L (10-60) 05/19/20 00:50 Alkaline Phosphatase 98 IU/L (42-121) 05/19/20 00:50 Lactate Dehydrogenase 125 IU/L (91-225) 05/21/20 05:20 Total Protein 7.8 g/dL (6.7-8.2) 05/19/20 00:50 Albumin 4.5 g/dL (3.2-5.5) 05/19/20 00:50 Globulin 3.3 g/dL (2.1-4.2) 05/19/20 00:50 Albumin/Globulin Ratio 1.4 (1.0-2.2) 05/19/20 00:50 Lipase 25 U/L (22-51) 05/19/20 00:50 Vitamin B12 601 pg/mL (180-914) 05/21/20 05:20 Urine Color YELLOW 05/19/20 04:25 Urine Clarity CLEAR (CLEAR) 05/19/20 04:25 Urine pH 6.0 PH (5.0-7.5) 05/19/20 04:25 Ur Specific [place] 1.020 (1.002-1.030) 05/19/20 04:25 Urine Protein 30 mg/dL (NEGATIVE) H 05/19/20 04:25 Urine Glucose (UA) NEGATIVE mg/dL (NEGATIVE) 05/19/20 04:25 Urine Ketones 15 mg/dL (NEGATIVE) H 05/19/20 04:25 Urine Occult Blood TRACE-INTA (NEGATIVE) 05/19/20 04:25 Urine Nitrite NEGATIVE (NEGATIVE) 05/19/20 04:25 Urine Bilirubin NEGATIVE (NEGATIVE) 05/19/20 04:25 Urine Urobilinogen 0.2 (NORMAL) E.U./dL (NORMAL) 05/19/20 04:25 Ur Leukocyte Esterase NEGATIVE (NEGATIVE) 05/19/20 04:25 Urine RBC 0-5 /HPF (0-5) 05/19/20 04:25 Urine WBC 0-3 /HPF (0-5) 05/19/20 04:25 Ur Squamous Epith Cells RARE Squamous (<= Few) 05/19/20 04:25 Urine Bacteria None Seen /HPF (None Seen) 05/19/20 04:25 Ur Microscopic Review INDICATED 05/19/20 04:25 Urine Culture Comments NOT INDICATED 05/19/20 04:25 SARS-CoV-2 (PCR) NOT DETECTED 05/19/20 05:37 - Procedures Procedures: Procedures ESOPHAGEAL DILATION (04/30/14) OTHER ENDOSCOPY OF SM INTEST (04/30/14) ABX Reporting Has patient been on IV antibiotics over the past 48 hours?: No Current Medications - Current Medications Current Medications: Active Medications Acetaminophen/Codeine Phosphate (Tylenol #3) 1 tab PO TID PRN PRN Reason: PAIN Aspirin (Ecotrin) 81 mg PO DAILY [facility] Last Admin: 05/21/20 10:36 Dose: 81 mg Documented by: Atorvastatin Calcium (Lipitor) 40 mg PO QPM [facility] Clonidine HCl ([id number]-Fpj-7) 1 patch TOP Q7D [facility] Last Admin: 05/19/20 16:03 Dose: 1 patch Documented by: Dicyclomine HCl (Bentyl) 10 mg PO QID PRN PRN Reason: Abdominal Pain Last Admin: 05/21/20 14:13 Dose: 10 mg Documented by: Enalapril Maleate (Vasotec) 20 mg PO DAILY [facility] Last Admin: 05/21/20 10:37 Dose: 20 mg Documented by: Enoxaparin Sodium (Lovenox) 40 mg SUBQ DAILY [facility] Last Admin: 05/21/20 08:35 Dose: 40 mg Documented by: Acetaminophen (Ofirmev) 100 mls @ 400 mls/hr IV Q6HR PRN PRN Reason: PAIN Last Infusion: 05/20/20 14:44 Dose: Infused Documented by: Potassium Chloride/Dextrose/Sod Cl () 1,000 mls @ 75 mls/hr IV .[id number] [facility] Last Admin: 05/21/20 14:13 Dose: 75 mls/hr Documented by: Ondansetron HCl (Zofran Inj) 4 mg IVP Q4HR PRN PRN Reason: Nausea / Vomiting Last Admin: 05/20/20 07:55 Dose: 4 mg Documented by: Pantoprazole Sodium (Protonix) 40 mg IVP QDAC [facility] Last Admin: 05/21/20 06:21 Dose: 40 mg Documented by: Sodium Chloride (Normal Saline Flush 0.9%) 10 ml IVP PRN PRN PRN Reason: NEEDED PER PROVIDER ORDERS Last Admin: 05/21/20 06:21 Dose: 10 ml Documented by: Sodium Chloride (Normal Saline Flush 0.9%) 10 ml IVP 0100,0900,1700 [facility] Last Admin: 05/21/20 08:42 Dose: Not Given Documented by: Verapamil HCl (Calan Sa) 240 mg PO QPM [facility] Acetaminophen/Cod 300/30 [Tylenol #3] 1 tab PO TID PRN 04/27/14 Aspirin 81 mg ORAL DAILY 04/27/14 Potassium Chloride [K-Dur] 20 meq PO DAILY 04/27/14 hydroCHLOROthiazide [Hydrochlorothiazide] 25 mg PO DAILY 04/27/14 Atorvastatin Calcium 40 mg PO QPM 05/19/20 Enalapril Maleate [Vasotec] 20 mg PO DAILY 05/19/20 Verapamil HCl [Calan Sr] 240 mg PO QPM 05/19/20
[2020-05-21] MEDS: ONDANSETRON 4 MG/2 ML VIAL IVP PRN (16:43)
[2020-05-21] MEDS ORDERED: ATORVASTATIN 40 MG TABLET PO SCH (21:00)
[2020-05-22] MEDS: SODIUM CHLORIDE FLUSH 0.9% 10 ML SYRINGE IVP SCH ×2 (01:21→08:52)
[2020-05-22] MEDS: D5NS W/20 MEQ KCL 1,000 ML IV SCH (03:03)
[2020-05-22 05:51] LABS: BASOPHILS % (AUTO) 0.5 %; EOSINOPHILS # (AUTO) 0.2 10^3/uL (0.0-0.7); EOSINOPHILS % (AUTO) 2.6 %; HGB - HEMOGLOBIN 9.9 g/dL (12.0-16.0); LYMPHOCYTES # (AUTO) 1.1 10^3/uL (1.5-3.5); LYMPHOCYTES % (AUTO) 18.7 %; MEAN CORPUSCULAR HGB CONC 30.7 g/dL (32.0-36.0); MEAN CORPUSCULAR VOLUME 78.2 fL (81.0-99.0); MEAN PLATELET VOLUME 11.6 fL (7.9-10.8); MONOCYTES # (AUTO) 0.7 10^3/uL (0.0-1.0); MONOCYTES % (AUTO) 11.9 %; NEUTROPHILS # (AUTO) 3.8 10^3/uL (1.5-6.6); PLT - PLATELET COUNT 146 10^3/uL (130-450); RED BLOOD COUNT 4.13 10^6/uL (4.20-5.40); RED CELL DISTRIBUTION WIDTH 14.6 % (12.0-15.0); WHITE BLOOD COUNT 5.8 x10^3/uL (4.8-10.8)
[2020-05-22 05:57] LABS: CALCIUM 8.2 mg/dL (8.5-10.3); CREATININE 0.7 mg/dL (0.4-1.0)
[2020-05-22] MEDS: PANTOPRAZOLE 40 MG VIAL IVP SCH (06:12)
[2020-05-22] MEDS: ENOXAPARIN 40 MG/0.4 ML SYRINGE SUBQ SCH (09:34)
--- NOTE | 2020-05-22 09:37 | XRAY Report ---
PROCEDURE: Abdomen 2 View X-Ray INDICATIONS: SBO TECHNIQUE: 2 views of the abdomen were acquired. COMPARISON: X-ray abdomen 05/21/2020 FINDINGS: Surgical changes and devices: None. Bowel: No pneumoperitoneum. The bowel gas pattern continues to demonstrate mildly dilated fluid-alma led loops of small bowel. Soft tissues: No masses; visualized solid organ contours appear normal in size. No suspicious abdom inal calcifications. Bones: No suspicious bony abnormalities. IMPRESSION: Persistent partial small bowel obstruction, stable versus minimally improved. Reviewed by: Dea Smith MD on 05/22/2020 9:36 AM PST Approved by: Dea Smith MD on 05/22/2020 9:36 AM PST Station ID: [id number]
[2020-05-22] MEDS: ENALAPRIL 5 MG TABLET PO SCH (10:56)
--- NOTE | 2020-05-22 13:44 | Discharge Plan ---
Discharge Plan Problem Reviewed?: Yes Disposition: Home, Self Care Condition: Stable Diet: Soft Activity Restrictions: Activity as Tolerated Shower Restrictions: No (fall precaution) Instruction Topics: Obstruction Sm Bowel Health Concerns: small bowel obstruction Plan of Treatment: you tolerate the diet, you have no more abdominal pain, no nausea or vomiting, you have bowel movement. your surgeon advise you can go home and followup as out-pt. Care Goals: stabilization and improved/resolved of your medical condition Assessment: discussed the care plan with you, you understood and agreed. you hope your PCP to adjust your home meds as needed Additional Instructions or Follow Up instructions: You may followup with your PCP in one week, followup with surgeon as out-pt. Should your symptoms return or worsen, you may present ER or call 911 for help. Follow-Up Care: Outpatient Rehab - PT No Smoking: If you smoke, Please STOP! Call for help. Follow-up with: Leighton Youssef MD [Primary Care Provider] -
--- NOTE | 2020-05-22 13:59 | DISCHARGE SUMMARY ---
"Discharge Summary Admit Date: 05/19/20 Discharge Date: 05/22/20 Discharging Provider: David Vale Primary Care Provider: Leighton Giraldo Condition at Discharge: Stable Discharge Disposition: 01 Home, Self Care Discharge Facility Name: home - DIAGNOSES Discharge Diagnoses with Status of Each Condition: (1) Small bowel obstruction resolved. Patient tolerated diet, patient has no more abdominal pain, patient has no more nausea or vomiting, pt had bowel movement with gas passed into her colectomy bag. Surgeon saw pt and recommended pt can be discharged, followup with her. (2)hyertension stable, Resume home blood pressure medicine. pt decline to adjust her home meds, she would like to discuss with her PCP to do that. (3) Hyperlipidemia Stable, resume home medication (4) Pericardial effusion stable/resolved, no complaints (5)weakness great improved as her baseline. PT/OT evaluated and treated pt. - HPI History of Present Illness: 80-yrs old female with hx of ulcerative colitis for which she had a colectomy and ostomy done remotely, who present ER for sudden onset of severe bilateral upper quadrant abdominal pain. pt was found to have small bowel obstruction. Dr. Suggs surgeon was consulted. NG tube was placed in ER. - CONSULTS | PROCEDURES Consultations: Dr. Suggs Procedures: no procedure. - HOSPITAL COURSE Hospital Course: Patient was admitted for sudden abdominal pain. pt was found to Small bowel obstruction.Patient had NG tubal done in ER. Patient was consulted with surgeon. Patient also was treated with Gastrografin, with bowel rest, with intravenous IV fluids. After treatment, pt had bowel movement passed into his colostomy bag. Patient tolerated diet, patient has no abdominal pain, patient has no nausea or vomiting. Surgeon discharge the patient as well. - ALLERGIES Allergies/Adverse Reactions: Allergies Allergy/AdvReac Type Severity Reaction Status Date / Time cyclobenzaprine HCl * Allergy Anxiety Verified 05/19/20 00:31 [From Flexeril] sulfasalazine AdvReac Intermediate Nausea Verified 05/19/20 14:23 [From Azulfidine] hydromorphone [From Dilaudid] AdvReac Hallucinati Verified 05/20/20 10:40 ons morphine AdvReac Hallucinati Verified 05/20/20 10:40 ons piroxicam AdvReac Unknown Verified 05/23/20 10:13 - MEDICATIONS Home Medications: Ambulatory Orders Medication Instructions Recorded Confirmed Acetaminophen/Cod 300/30 [Tylenol 1 tab PO TID PRN 04/27/14 05/19/20 #3] Aspirin 81 mg ORAL DAILY 04/27/14 05/19/20 Potassium Chloride [K-Dur] 20 meq PO DAILY 04/27/14 05/19/20 hydroCHLOROthiazide 25 mg PO DAILY 04/27/14 05/19/20 [Hydrochlorothiazide] Atorvastatin Calcium 40 mg PO QPM 05/19/20 05/19/20 Enalapril Maleate [Vasotec] 20 mg PO DAILY 05/19/20 05/19/20 Verapamil HCl [Calan Sr] 240 mg PO QPM 05/19/20 05/21/20 - PHYSICAL EXAM AT DISCHARGE General Appearance: positive: No acute distress, Alert. negative: Lethargic Eyes Bilateral: positive: Normal inspection, PERRL, No lid inflammation ENT: positive: ENT inspection nml, No signs of dehydration. negative: Purulent nasal drainage Neck: positive: Nml inspection, Thyroid nml, Trachea midline. negative: Thyromegaly, Tracheal deviation Respiratory: positive: Chest non-tender, No respiratory distress, Breath sounds nml. negative: Wheezes, Rales, Rhonchi Cardiovascular: positive: Regular rate & rhythm, No murmur. negative: Tachycardia, Bradycardia, Systolic murmur, Diastolic murmur Peripheral Pulses: positive: 2+ Abdomen: positive: Non-tender, Nml bowel sounds, No distention, Other (pt has colostomy bag). negative: Tenderness, Guarding, Rebound Back: positive: Nml inspection Skin: positive: Color nml, No rash, Warm, Dry. negative: Cyanosis, Diaphoresis, Pallor Extremities: positive: Non-tender, Full ROM, Nml appearance. negative: Calf tenderness Neurologic/Psychiatric: positive: Oriented x3, Motor nml, Sensation nml, Mood/affect nml. negative: Weakness, Sensory loss, Facial droop, Slurred/abnml speech, Depressed mood/affect - LABS Result Diagrams: 05/22/20 05:17 05/22/20 05:17 - FOLLOW UP Follow Up: you tolerate the diet, you have no more abdominal pain, no nausea or vomiting, you have bowel movement. your surgeon advise you can go home and followup as out-pt. You may followup with your PCP in one week, followup with surgeon as out-pt. Should your symptoms return or worsen, you may present ER or call 911 for help. - TIME SPENT Time Spent in Discharge (Minutes): 30"
[2020-05-22 16:31] VITALS: BP 132/54
[2020-05-22] MEDS ORDERED: ASPIRIN EC 81 MG TABLET PO SCH (21:00)
== END 2020-05-22 16:25 | disposition home or self-care (01) | DRG 389 ==
LOC: EDUNIT# → ED 00:15 → MS2 06:43
PROVIDERS: ADMIT Internal Medicine; ATTEND Nurse Practitioner Gerontology
DX: K56.600 Partial intestinal obstruction, unspecified as to cause (principal); I31.3 Pericardial effusion (noninflammatory); K94.09 Other complications of colostomy; K56.609 Unspecified intestinal obstruction, unspecified as to partial versus complete obstruction; K51.90 Ulcerative colitis, unspecified, without complications; H91.90 Unspecified hearing loss, unspecified ear; I10 Essential (primary) hypertension; Y83.6 Removal of other organ (partial) (total) as the cause of abnormal reaction of the patient, or of later complication, without mention of misadventure at the time of the procedure; E78.5 Hyperlipidemia, unspecified; Z79.82 Long term (current) use of aspirin; Z79.899 Other long term (current) drug therapy; Z20.828 Contact with and (suspected) exposure to other viral communicable diseases
CPT/HCPCS: 36415; 74019; 74022; 74177; 80048; 80053; 81001; 82607; 82728; 83540; 83615; 83690; 84466; 85025; 85045; 93005; 93306; 96374; 96375; 96376; 97116; 97161; 97165; 99284; 99285; A9270; J0131; J1170; J1650; Q9963; Q9967; U0004; 81003; 87086; Q9966

== ENCOUNTER 2020-06-19 09:25 | Outpatient (CLI) | payer MEDICARE, OTHER ==
--- NOTE | 2020-06-25 08:59 | Mammography Report ---
BILATERAL DIGITAL SCREENING MAMMOGRAM: 06/19/2020 CLINICAL: Routine screening. Comparison is made to exams dated: 06/23/2019 mammogram, 05/18/2018 mammogram, 05/10/2017 mammogram, 05/08/2016 mammogram, 05/06/2015 mammogram, and 04/27/2014 mammogram - [facility]. There are scattered fibroglandular elements in both breasts. No significant masses, calcifications, or other findings are seen in either breast. There has been no significant interval change. IMPRESSION: NEGATIVE There is no mammographic evidence of malignancy. A 1 year screening mammogram is recommended. This exam was interpreted at Station ID: [id number]. NOTE: For mammograms, a report in lay terms will be sent to the patient. Approximately 15% of breast malignancies will not be visualized mammographically. In the management of a palpable breast mass, a negative mammogram must not discourage biopsy of a clinically suspicious lesion. Electronically Signed By: Sae Sultana acr/penrad:06/24/2020 16:19:24 ACR BI-RADS Category 1: Negative [id number] PARENCHYMAL PATTERN: (A) - The breast(s) demonstrate(s) scattered fibroglandular densities. BI-RADS CATEGORY: (1) - 1 RECOMMENDATION: (ANNUAL) - Recommend routine annual screening mammography. [id number] 1 year screening LATERALITY: (B)
== END 2020-06-19 09:26 | disposition home or self-care (01) ==
LOC: DI.N 09:25
DX: Z12.31 Encounter for screening mammogram for malignant neoplasm of breast (principal)

== ENCOUNTER 2020-06-25 13:00 | Outpatient (CLI) | payer MEDICARE, OTHER | END 2020-06-25 13:01 | disposition home or self-care (01) | LOC: NS 13:00 | PROVIDERS: ATTEND Family Medicine | DX: Z71.3 Dietary counseling and surveillance (principal); R63.4 Abnormal weight loss | CPT/HCPCS: 97802 ==

== ENCOUNTER 2020-09-02 15:00 | Outpatient (CLI) | payer MEDICARE, OTHER ==
[2020-09-02 19:16] LABS: BILIRUBIN,URINE NEGATIVE (NEGATIVE); GLUCOSE, URINE (UA) NEGATIVE (NEGATIVE); KETONES,URINE (UA) NEGATIVE (NEGATIVE); LEUKOCYTE ESTERASE, URINE NEGATIVE (NEGATIVE); NITRITE,URINE NEGATIVE (NEGATIVE); OCCULT BLOOD,URINE NEGATIVE (NEGATIVE); PH,URINE 5.5 PH (5.0-7.5); PROTEIN,URINE NEGATIVE (NEGATIVE); UROBILINOGEN,URINE 0.2 (NORMAL) E.U./dL (NORMAL)
[2020-09-02 19:23] LABS: CLARITY,URINE CLEAR (CLEAR)
[2020-09-02 19:34] LABS: BACTERIA,URINE None Seen /HPF (None Seen); RBC,URINE 0-5 /HPF (0-5); SQUAMOUS EPITHELIAL CELL,UR RARE Squamous (<= Few)
== END 2020-09-02 23:59 | disposition home or self-care (01) ==
LOC: LAB.R 15:00
PROVIDERS: ATTEND Family Medicine
DX: Q64.9 Congenital malformation of urinary system, unspecified (principal)
CPT/HCPCS: 81001

== ENCOUNTER 2020-12-05 11:29 | Outpatient (CLI) | payer MEDICARE, OTHER ==
[2020-12-05 18:00] LABS: BASOPHILS % (AUTO) 0.6 %; HCT - HEMATOCRIT 41.4 % (37.0-47.0); HGB - HEMOGLOBIN 12.7 g/dL (12.0-16.0); LYMPHOCYTES # (AUTO) 1.6 10^3/uL (1.5-3.5); LYMPHOCYTES % (AUTO) 22.7 %; MEAN CORPUSCULAR HEMOGLOBIN 24.1 pg (27.0-31.0); MEAN CORPUSCULAR HGB CONC 30.7 g/dL (32.0-36.0); MEAN CORPUSCULAR VOLUME 78.6 fL (81.0-99.0); MEAN PLATELET VOLUME 12.4 fL (7.9-10.8); MONOCYTES # (AUTO) 0.5 10^3/uL (0.0-1.0); MONOCYTES % (AUTO) 7.3 %; NEUTROPHILS % (AUTO) 69.3 %; PLT - PLATELET COUNT 198 10^3/uL (130-450); RED BLOOD COUNT 5.27 10^6/uL (4.20-5.40); RED CELL DISTRIBUTION WIDTH 14.7 % (12.0-15.0); WHITE BLOOD COUNT 7.1 x10^3/uL (4.8-10.8)
[2020-12-05 18:32] LABS: ALBUMIN 4.3 g/dL (3.2-5.5); ALBUMIN/GLOBULIN RATIO 1.3 (1.0-2.2); BILIRUBIN,TOTAL 0.8 mg/dL (0.2-1.0); CALCIUM 9.7 mg/dL (8.5-10.3); CREATININE 0.8 mg/dL (0.4-1.0); POTASSIUM 4.4 mmol/L (3.5-5.0); THYROID STIMULATING HORMONE 2.37 uIU/mL (0.34-5.60); TOTAL PROTEIN 7.5 g/dL (6.7-8.2)
[2020-12-05 18:39] LABS: FERRITIN 89.3 ng/mL (11.0-306.8)
[2020-12-05 18:43] LABS: FOLATE 20.57 ng/mL (5.90 - >24.8)
== END 2020-12-05 11:30 | disposition home or self-care (01) ==
LOC: LAB.WCP 11:29
PROVIDERS: ATTEND Family Medicine
DX: D64.9 Anemia, unspecified (principal); R53.83 Other fatigue; R63.4 Abnormal weight loss; K51.90 Ulcerative colitis, unspecified, without complications; K21.9 Gastro-esophageal reflux disease without esophagitis; I10 Essential (primary) hypertension
CPT/HCPCS: 36415; 80053; 82607; 82728; 82746; 83540; 84443; 84466; 85025

== ENCOUNTER 2021-05-07 07:07 | Outpatient (CLI) | payer MEDICARE, OTHER ==
[2021-05-07 11:59] LABS: BASOPHILS % (AUTO) 0.5 %; EOSINOPHILS # (AUTO) 0.2 10^3/uL (0.0-0.7); EOSINOPHILS % (AUTO) 2.5 %; HCT - HEMATOCRIT 42.4 % (37.0-47.0); HGB - HEMOGLOBIN 13.2 g/dL (12.0-16.0); LYMPHOCYTES % (AUTO) 32.5 %; MEAN CORPUSCULAR HEMOGLOBIN 24.2 pg (27.0-31.0); MEAN CORPUSCULAR HGB CONC 31.1 g/dL (32.0-36.0); MEAN CORPUSCULAR VOLUME 77.8 fL (81.0-99.0); MEAN PLATELET VOLUME 12.5 fL (7.9-10.8); MONOCYTES # (AUTO) 0.5 10^3/uL (0.0-1.0); MONOCYTES % (AUTO) 7.5 %; NEUTROPHILS # (AUTO) 3.5 10^3/uL (1.5-6.6); NEUTROPHILS % (AUTO) 56.8 %; PLT - PLATELET COUNT 200 10^3/uL (130-450); RED BLOOD COUNT 5.45 10^6/uL (4.20-5.40); RED CELL DISTRIBUTION WIDTH 14.6 % (12.0-15.0); WHITE BLOOD COUNT 6.1 x10^3/uL (4.8-10.8)
[2021-05-07 12:21] LABS: ALBUMIN 4.2 g/dL (3.2-5.5); ALBUMIN/GLOBULIN RATIO 1.3 (1.0-2.2); ALKALINE PHOSPHATASE 86 IU/L (42-121); ALT ALANINE AMINOTRANSFERASE 21 IU/L (10-60); AST ASPARTATE AMINOTRANSFERASE 21 IU/L (10-42); BUN - BLOOD UREA NITROGEN 20 mg/dL (6-20); CALCIUM 9.7 mg/dL (8.5-10.3); CARBON DIOXIDE - CO2 30 mmol/L (21-32); CHLORIDE 99 mmol/L (101-111); CHOL/HDL RATIO 2.3 (<4.4); CHOLESTEROL 135 mg/dL; CREATININE 0.6 mg/dL (0.4-1.0); GFR - MDRD 96 (>89); GLUCOSE 97 mg/dL (70-100); HDL CHOLESTEROL 60 mg/dL; LDL CHOLESTEROL,CALCULATED 63 mg/dL; LDL/HDL RATIO 1.1 (<4.4); POTASSIUM 3.9 mmol/L (3.5-5.0); SODIUM 139 mmol/L (135-145); TOTAL PROTEIN 7.4 g/dL (6.7-8.2); TRIGLYCERIDES 60 mg/dL; VLDL CHOLESTEROL 12 mg/dL
[2021-05-07 13:55] LABS: THYROID STIMULATING HORMONE 3.5 uIU/mL (0.34-5.60)
== END 2021-05-07 07:08 | disposition home or self-care (01) ==
LOC: LAB.N 07:07
PROVIDERS: ATTEND Family Medicine
DX: I10 Essential (primary) hypertension (principal); Z90.49 Acquired absence of other specified parts of digestive tract; Z93.2 Ileostomy status; K51.90 Ulcerative colitis, unspecified, without complications; E78.5 Hyperlipidemia, unspecified
CPT/HCPCS: 36415; 80053; 80061; 83721; 84443; 85025

== ENCOUNTER 2021-08-26 12:08 | Outpatient (CLI) | payer MEDICARE, OTHER ==
[2021-08-26 18:02] LABS: BASOPHILS % (AUTO) 0.4 %; HCT - HEMATOCRIT 39.7 % (37.0-47.0); HGB - HEMOGLOBIN 12.4 g/dL (12.0-16.0); LYMPHOCYTES # (AUTO) 1.1 10^3/uL (1.5-3.5); LYMPHOCYTES % (AUTO) 14.9 %; MEAN CORPUSCULAR HEMOGLOBIN 24.1 pg (27.0-31.0); MEAN CORPUSCULAR HGB CONC 31.2 g/dL (32.0-36.0); MEAN CORPUSCULAR VOLUME 77.1 fL (81.0-99.0); MEAN PLATELET VOLUME 12.7 fL (7.9-10.8); MONOCYTES # (AUTO) 0.6 10^3/uL (0.0-1.0); MONOCYTES % (AUTO) 8.2 %; NEUTROPHILS # (AUTO) 5.4 10^3/uL (1.5-6.6); NEUTROPHILS % (AUTO) 76.2 %; PLT - PLATELET COUNT 202 10^3/uL (130-450); RED BLOOD COUNT 5.15 10^6/uL (4.20-5.40); RED CELL DISTRIBUTION WIDTH 14.2 % (12.0-15.0)
[2021-08-26 19:02] LABS: CALCIUM 9.6 mg/dL (8.5-10.3); CREATININE 0.7 mg/dL (0.4-1.0)
[2021-08-26 19:15] LABS: THYROID STIMULATING HORMONE 2.45 uIU/mL (0.34-5.60)
== END 2021-08-26 12:09 | disposition home or self-care (01) ==
LOC: LAB.N 12:08
PROVIDERS: ATTEND Nurse Practitioner Family
DX: R20.2 Paresthesia of skin (principal); D64.9 Anemia, unspecified
CPT/HCPCS: 36415; 80048; 84443; 85025

== ENCOUNTER 2021-12-29 12:39 | Outpatient (CLI) | payer MEDICARE, OTHER ==
--- NOTE | 2021-12-30 13:16 | Ultrasound Report ---
PROCEDURE: Carotid Doppler Complete INDICATIONS: CAROTID ARTERY STENOSIS TECHNIQUE: Color and pulse Doppler interrogation was performed of both carotid systems, with image documentation and velocity measurements. COMPARISON: None. FINDINGS: Bilateral thyroid nodules are present. Right side: Brachial blood pressure: 154/54 mm Hg. Common carotid artery peak systolic velocity: 93 cm/sec. Internal carotid artery peak systolic velocity: 156 cm/sec. Internal carotid artery end diastolic velocity: 31 cm/sec. External carotid artery peak systolic velocity: 144 cm/sec. ICA/CCA peak systolic ratio: 1.7 . Armstrong scale imaging description: Moderate calcific plaque Percent internal carotid artery stenosis: 50-69% . Vertebral artery: Flow direction is antegrade. Left side: Brachial blood pressure: 150/63 mm Hg. Common carotid artery peak systolic velocity: 74 cm/sec. Internal carotid artery peak systolic velocity: 90 cm/sec. ICA/CCA peak systolic ratio: 1.2 . Armstrong scale imaging description: Moderate calcific plaque Percent internal carotid artery stenosis: Less than 50% . Vertebral artery: Flow direction is antegrade. IMPRESSION: 1. 50-69% right internal carotid artery stenosis. 2. Less than 50% left internal carotid artery stenosis. 3. Antegrade vertebral artery flow bilaterally. 4. Bilateral thyroid nodules. Initial further assessment with thyroid ultrasound is recommended. The estimate of stenosis included in the report of the imaging study was calculated using the NASCET method Reviewed by: Erwin Jenkins MD on 12/30/2021 1:14 PM PDT Approved by: Erwin Jenkins MD on 12/30/2021 1:14 PM PDT Station ID: [id number]
== END 2021-12-29 12:40 | disposition home or self-care (01) ==
LOC: DI 12:39
PROVIDERS: ATTEND Family Medicine
DX: I65.23 Occlusion and stenosis of bilateral carotid arteries (principal)
CPT/HCPCS: 93880

== ENCOUNTER 2022-02-09 07:28 | Outpatient (CLI) | payer MEDICARE, OTHER ==
[2022-02-09 12:01] LABS: BASOPHILS % (AUTO) 0.5 %; HCT - HEMATOCRIT 41.7 % (37.0-47.0); HGB - HEMOGLOBIN 13.5 g/dL (12.0-16.0); LYMPHOCYTES % (AUTO) 31.8 %; MEAN CORPUSCULAR HEMOGLOBIN 24.7 pg (27.0-31.0); MEAN CORPUSCULAR HGB CONC 32.4 g/dL (32.0-36.0); MEAN CORPUSCULAR VOLUME 76.4 fL (81.0-99.0); MEAN PLATELET VOLUME 12.6 fL (7.9-10.8); MONOCYTES # (AUTO) 0.4 10^3/uL (0.0-1.0); MONOCYTES % (AUTO) 6.3 %; NEUTROPHILS # (AUTO) 3.8 10^3/uL (1.5-6.6); NEUTROPHILS % (AUTO) 61.1 %; PLT - PLATELET COUNT 191 10^3/uL (130-450); RED BLOOD COUNT 5.46 10^6/uL (4.20-5.40); RED CELL DISTRIBUTION WIDTH 14.4 % (12.0-15.0); WHITE BLOOD COUNT 6.2 x10^3/uL (4.8-10.8)
[2022-02-09 12:26] LABS: ALBUMIN 4.1 g/dL (3.2-5.5); ALBUMIN/GLOBULIN RATIO 1.2 (1.0-2.2); ALKALINE PHOSPHATASE 94 IU/L (42-121); ALT ALANINE AMINOTRANSFERASE 18 IU/L (10-60); AST ASPARTATE AMINOTRANSFERASE 19 IU/L (10-42); BILIRUBIN,TOTAL 0.8 mg/dL (0.2-1.0); BUN - BLOOD UREA NITROGEN 17 mg/dL (6-20); CALCIUM 9.8 mg/dL (8.5-10.3); CARBON DIOXIDE - CO2 31 mmol/L (21-32); CHLORIDE 98 mmol/L (101-111); CHOL/HDL RATIO 2.5 (<4.4); CHOLESTEROL 137 mg/dL; CREATININE 0.7 mg/dL (0.4-1.0); GFR - MDRD 80 (>89); GLUCOSE 99 mg/dL (70-100); HDL CHOLESTEROL 55 mg/dL; LDL CHOLESTEROL,CALCULATED 70 mg/dL; LDL/HDL RATIO 1.3 (<4.4); POTASSIUM 3.9 mmol/L (3.5-5.0); SODIUM 135 mmol/L (135-145); TOTAL PROTEIN 7.4 g/dL (6.7-8.2); TRIGLYCERIDES 61 mg/dL; VLDL CHOLESTEROL 12 mg/dL
[2022-02-09 12:30] LABS: THYROID STIMULATING HORMONE 3.26 uIU/mL (0.34-5.60)
== END 2022-02-09 07:29 | disposition home or self-care (01) ==
LOC: LAB.N 07:28
PROVIDERS: ATTEND Family Medicine
DX: I10 Essential (primary) hypertension (principal); I65.29 Occlusion and stenosis of unspecified carotid artery; I47.1 Supraventricular tachycardia; K21.9 Gastro-esophageal reflux disease without esophagitis; E78.5 Hyperlipidemia, unspecified
CPT/HCPCS: 36415; 80053; 80061; 82565; 83721; 84443; 85025

== ENCOUNTER 2022-06-08 10:08 | Outpatient (CLI) | payer MEDICARE, OTHER ==
[2022-06-08 12:34] LABS: BASOPHILS % (AUTO) 0.4 %; HCT - HEMATOCRIT 42.7 % (37.0-47.0); HGB - HEMOGLOBIN 13.2 g/dL (12.0-16.0); LYMPHOCYTES # (AUTO) 1.4 10^3/uL (1.5-3.5); LYMPHOCYTES % (AUTO) 26.1 %; MEAN CORPUSCULAR HEMOGLOBIN 23.8 pg (27.0-31.0); MEAN CORPUSCULAR HGB CONC 30.9 g/dL (32.0-36.0); MEAN CORPUSCULAR VOLUME 77.1 fL (81.0-99.0); MONOCYTES # (AUTO) 0.3 10^3/uL (0.0-1.0); MONOCYTES % (AUTO) 6.1 %; NEUTROPHILS # (AUTO) 3.6 10^3/uL (1.5-6.6); NEUTROPHILS % (AUTO) 67.2 %; PLT - PLATELET COUNT 160 10^3/uL (130-450); RED BLOOD COUNT 5.54 10^6/uL (4.20-5.40); WHITE BLOOD COUNT 5.4 x10^3/uL (4.8-10.8)
[2022-06-08 12:48] LABS: ALBUMIN 4.1 g/dL (3.2-5.5); ALBUMIN/GLOBULIN RATIO 1.3 (1.0-2.2); ALKALINE PHOSPHATASE 96 IU/L (42-121); ALT ALANINE AMINOTRANSFERASE 18 IU/L (10-60); AST ASPARTATE AMINOTRANSFERASE 20 IU/L (10-42); BUN - BLOOD UREA NITROGEN 23 mg/dL (6-20); CALCIUM 9.8 mg/dL (8.5-10.3); CARBON DIOXIDE - CO2 31 mmol/L (21-32); CHLORIDE 101 mmol/L (101-111); CHOL/HDL RATIO 2.4 (<4.4); CHOLESTEROL 131 mg/dL; CREATININE 0.7 mg/dL (0.4-1.0); GFR - MDRD 80 (>89); GLUCOSE 107 mg/dL (70-100); HDL CHOLESTEROL 55 mg/dL; LDL CHOLESTEROL,CALCULATED 67 mg/dL; LDL/HDL RATIO 1.2 (<4.4); POTASSIUM 4.1 mmol/L (3.5-5.0); SODIUM 138 mmol/L (135-145); TOTAL PROTEIN 7.2 g/dL (6.7-8.2); TRIGLYCERIDES 46 mg/dL; VLDL CHOLESTEROL 9 mg/dL
[2022-06-08 13:03] LABS: PLATELET ESTIMATE, MANUAL NORMAL (130-450,000) (NORMAL); PLATELET MORPHOLOGY NORMAL APPEARANCE (NORMAL); RBC MORPHOLOGY (MULTIPLE) NORMAL APPEARANCE (NORMAL)
[2022-06-08 13:50] LABS: THYROID STIMULATING HORMONE 3.78 uIU/mL (0.34-5.60)
== END 2022-06-08 10:09 | disposition home or self-care (01) ==
LOC: LAB.N 10:08
PROVIDERS: ATTEND Family Medicine
DX: I10 Essential (primary) hypertension (principal); I65.29 Occlusion and stenosis of unspecified carotid artery; I47.1 Supraventricular tachycardia; K21.9 Gastro-esophageal reflux disease without esophagitis; E78.5 Hyperlipidemia, unspecified
CPT/HCPCS: 36415; 80053; 80061; 83721; 84443; 85025

== ENCOUNTER 2022-09-08 10:03 | Outpatient (CLI) | payer MEDICARE, OTHER ==
[2022-09-08 12:43] LABS: BASOPHILS % (AUTO) 0.5 %; EOSINOPHILS # (AUTO) 0.2 10^3/uL (0.0-0.7); HCT - HEMATOCRIT 44.8 % (37.0-47.0); HGB - HEMOGLOBIN 13.8 g/dL (12.0-16.0); LYMPHOCYTES # (AUTO) 1.7 10^3/uL (1.5-3.5); LYMPHOCYTES % (AUTO) 28.6 %; MEAN CORPUSCULAR HEMOGLOBIN 23.4 pg (27.0-31.0); MEAN CORPUSCULAR HGB CONC 30.8 g/dL (32.0-36.0); MEAN CORPUSCULAR VOLUME 76.1 fL (81.0-99.0); MEAN PLATELET VOLUME 12.2 fL (7.9-10.8); MONOCYTES # (AUTO) 0.4 10^3/uL (0.0-1.0); MONOCYTES % (AUTO) 6.5 %; NEUTROPHILS # (AUTO) 3.7 10^3/uL (1.5-6.6); NEUTROPHILS % (AUTO) 61.2 %; PLT - PLATELET COUNT 178 10^3/uL (130-450); RED BLOOD COUNT 5.89 10^6/uL (4.20-5.40); RED CELL DISTRIBUTION WIDTH 13.9 % (12.0-15.0)
[2022-09-08 12:57] LABS: ALBUMIN 4.2 g/dL (3.2-5.5); ALBUMIN/GLOBULIN RATIO 1.1 (1.0-2.2); BILIRUBIN,TOTAL 0.9 mg/dL (0.2-1.0); CALCIUM 10.2 mg/dL (8.5-10.3); CREATININE 0.7 mg/dL (0.4-1.0); POTASSIUM 3.8 mmol/L (3.5-5.0); TOTAL PROTEIN 8.2 g/dL (6.7-8.2)
== END 2022-09-08 10:04 | disposition home or self-care (01) ==
LOC: LAB.N 10:03
PROVIDERS: ATTEND Family Medicine
DX: R63.4 Abnormal weight loss (principal)
CPT/HCPCS: 36415; 80053; 85025

== ENCOUNTER 2022-11-12 12:27 | Outpatient (CLI) | payer MEDICARE, OTHER ==
--- NOTE | 2022-11-13 10:17 | Mammography Report ---
BILATERAL DIGITAL SCREENING MAMMOGRAM: 11/12/2022 CLINICAL: Routine screening. Comparison is made to exams dated: 06/19/2020 mammogram, 06/23/2019 mammogram, 05/18/2018 mammogram, 1 mammogram, 05/08/2016 mammogram, and 05/06/2015 mammogram - [facility]. There are scattered areas of fibroglandular density in both breasts (category b / 25%-50% glandular t issue). No significant masses, calcifications, or other findings are seen in either breast. There has been no significant interval change. IMPRESSION: NEGATIVE There is no mammographic evidence of malignancy. A 1 year screening mammogram is recommended. Based on the Tyrer Cuzick model (a risk assessment model) the patients lifetime risk is 0.5% and her 10 year risk is 0.0%. According to the ACR, ACS, and NCCN guidelines, an annual breast MRI exam deedee g with mammogram is recommended if the patients lifetime risk is 20% or greater. This exam was interpreted at Station ID: [id number]. NOTE: For mammograms, a report in lay terms will be sent to the patient. Approximately 15% of breast malignancies will not be visualized mammographically. In the management of a palpable breast mass, a negative mammogram must not discourage biopsy of a clinically suspicious lesion. Electronically Signed By: Edwina solis/[email or web address]:11/12/2022 15:58:19 letter sent: No_Letter ACR BI-RADS Category 1: Negative 3341F PARENCHYMAL PATTERN: (A) - The breast(s) demonstrate(s) scattered fibroglandular densities. BI-RADS CATEGORY: (1) - 1 Mammogram [id number] 1 year screening LATERALITY: (B)
== END 2022-11-12 12:28 | disposition home or self-care (01) ==
LOC: DI.N 12:27
DX: Z12.31 Encounter for screening mammogram for malignant neoplasm of breast (principal)

== ENCOUNTER 2023-06-28 09:52 | Outpatient (CLI) | payer MEDICARE, OTHER ==
[2023-06-28 12:44] LABS: BASOPHILS % (AUTO) 0.8 %; EOSINOPHILS % (AUTO) 0.8 %; HCT - HEMATOCRIT 40.6 % (37.0-47.0); HGB - HEMOGLOBIN 12.5 g/dL (12.0-16.0); LYMPHOCYTES # (AUTO) 1.6 10^3/uL (1.5-3.5); LYMPHOCYTES % (AUTO) 29.2 %; MEAN CORPUSCULAR HEMOGLOBIN 23.7 pg (27.0-31.0); MEAN CORPUSCULAR HGB CONC 30.8 g/dL (32.0-36.0); MONOCYTES # (AUTO) 0.4 10^3/uL (0.0-1.0); MONOCYTES % (AUTO) 7.2 %; NEUTROPHILS # (AUTO) 3.3 10^3/uL (1.5-6.6); NEUTROPHILS % (AUTO) 61.6 %; PLT - PLATELET COUNT 188 10^3/uL (130-450); RED BLOOD COUNT 5.27 10^6/uL (4.20-5.40); RED CELL DISTRIBUTION WIDTH 14.6 % (12.0-15.0); WHITE BLOOD COUNT 5.3 x10^3/uL (4.8-10.8)
[2023-06-28 13:03] LABS: ALBUMIN 4.1 g/dL (3.2-5.5); ALBUMIN/GLOBULIN RATIO 1.3 (1.0-2.2); ALKALINE PHOSPHATASE 107 IU/L (42-121); ALT ALANINE AMINOTRANSFERASE 15 IU/L (10-60); AST ASPARTATE AMINOTRANSFERASE 17 IU/L (10-42); BILIRUBIN,TOTAL 0.7 mg/dL (0.2-1.0); BUN - BLOOD UREA NITROGEN 19 mg/dL (6-20); CALCIUM 10.1 mg/dL (8.5-10.3); CARBON DIOXIDE - CO2 30 mmol/L (21-32); CHLORIDE 101 mmol/L (101-111); CHOL/HDL RATIO 2.3 (<4.4); CHOLESTEROL 126 mg/dL; CREATININE 0.7 mg/dL (0.6-1.3); GFR - MDRD 80 (>89); GLUCOSE 100 mg/dL (74-104); HDL CHOLESTEROL 54 mg/dL; LDL CHOLESTEROL,CALCULATED 59 mg/dL; LDL/HDL RATIO 1.1 (<4.4); POTASSIUM 4.1 mmol/L (3.5-4.5); SODIUM 137 mmol/L (135-145); TOTAL PROTEIN 7.2 g/dL (6.4-8.9); TRIGLYCERIDES 67 mg/dL (48-352); VLDL CHOLESTEROL 13 mg/dL
[2023-06-28 13:19] LABS: THYROID STIMULATING HORMONE 2.95 uIU/mL (0.34-5.60)
== END 2023-06-28 09:53 | disposition home or self-care (01) ==
LOC: LAB.N 09:52
PROVIDERS: ATTEND Family Medicine
DX: I10 Essential (primary) hypertension (principal); M79.10 Myalgia, unspecified site; K51.90 Ulcerative colitis, unspecified, without complications; K21.9 Gastro-esophageal reflux disease without esophagitis; I47.10 Supraventricular tachycardia, unspecified
CPT/HCPCS: 36415; 80053; 80061; 83721; 84443; 85025

== ENCOUNTER 2023-12-10 07:39 | Outpatient (CLI) | payer MEDICARE, OTHER ==
[2023-12-10 12:11] LABS: BASOPHILS % (AUTO) 0.4 %; HCT - HEMATOCRIT 41.8 % (37.0-47.0); HGB - HEMOGLOBIN 12.9 g/dL (12.0-16.0); LYMPHOCYTES # (AUTO) 1.8 10^3/uL (1.5-3.5); MEAN CORPUSCULAR HEMOGLOBIN 23.4 pg (27.0-31.0); MEAN CORPUSCULAR HGB CONC 30.9 g/dL (32.0-36.0); MEAN CORPUSCULAR VOLUME 75.9 fL (81.0-99.0); MEAN PLATELET VOLUME 12.3 fL (7.9-10.8); MONOCYTES # (AUTO) 0.4 10^3/uL (0.0-1.0); MONOCYTES % (AUTO) 6.8 %; NEUTROPHILS # (AUTO) 3.2 10^3/uL (1.5-6.6); NEUTROPHILS % (AUTO) 59.8 %; PLT - PLATELET COUNT 192 10^3/uL (130-450); RED BLOOD COUNT 5.51 10^6/uL (4.20-5.40); RED CELL DISTRIBUTION WIDTH 14.9 % (12.0-15.0); WHITE BLOOD COUNT 5.3 x10^3/uL (4.8-10.8)
[2023-12-10 12:30] LABS: ALBUMIN 4.2 g/dL (3.2-5.5); ALBUMIN/GLOBULIN RATIO 1.6 (1.0-2.2); BILIRUBIN,TOTAL 0.9 mg/dL (0.2-1.0); CALCIUM 9.9 mg/dL (8.5-10.3); CREATININE 0.7 mg/dL (0.6-1.3); THYROID STIMULATING HORMONE 4.4 uIU/mL (0.34-5.60); TOTAL PROTEIN 6.9 g/dL (6.4-8.9)
== END 2023-12-10 07:40 | disposition home or self-care (01) ==
LOC: LAB.N 07:39
PROVIDERS: ATTEND Family Medicine
DX: I47.10 Supraventricular tachycardia, unspecified (principal); Z93.2 Ileostomy status; R63.4 Abnormal weight loss; Z90.49 Acquired absence of other specified parts of digestive tract
CPT/HCPCS: 36415; 80053; 84443; 85025